=== PATIENT | female | born 1975 | race Caucasian/White ===

== ENCOUNTER 2016-03-17 11:08 | Emergency (ER) | payer SELFPAY ==
[~2016-03-17] VITALS: Ht 167.6 cm; Wt 86.8 kg
[~2016-03-17 11:08] MED LIST: COLY4000S PO; DICY1TAB26 PO; VERA27.5
[2016-03-17 11:14] VITALS: BP 125/78; PULSE 107; RESP 16; TEMP 98.4; O2SAT 98
[2016-03-17] MEDS ORDERED: LIDOCAINE HCL 1% 50 ML VIAL INFIL STA (12:10)
--- NOTE | 2016-03-17 12:46 | PD ---
HPI Chief Complaint: Laceration/Skin Injury Time Seen by Provider: 11:52 Travel History International Travel<30 days: No Contact w/Intl Traveler<30days: No Traveled to known affect area: No History of Present Illness HPI 41-year-old woman cut her right hand on new kitchen knife. She had 2 small cuts on her base of her right index finger. Bleeding is controlled. No other complaints. History Past Medical History Medical History: Denies Significant Hx Tetanus Vaccination: < 5 Years Influenza Vaccination: No LMP: IUD -03/07/16 : 5 Para: 3 Social History Alcohol Use: Yes (Occ.) Tobacco Use: Yes (1 PPD) Allergies-Medications (Allergen,Severity, Reaction): Coded Allergies: Doxycycline (Verified Allergy, Intermediate, NAUSEA/VOMITING, 03/17/16) Reported Meds & Prescriptions Reported Meds & Active Scripts Active No Active Prescriptions or Reported Medications Review of Systems Except as stated in HPI: all other systems reviewed are Neg Physical Exam Narrative GENERAL: 41-year-old woman, no acute distress. SKIN: Warm and dry. CARDIOVASCULAR: Warm and well perfused. RESPIRATORY: Normal rate and effort. MUSCULOSKELETAL: 2 parallel superficial lacerations to the base of the right index finger, one about 12 mm or so, the other one about 5 mm or so. NEUROLOGICAL: Awake and alert. No gross deficits. Data Data Last Documented VS Vital Signs Date Time Temp Pulse Resp B/P Pulse Ox O2 Delivery O2 Flow Rate FiO2 03/17/16 11:14 98.4 107 16 125/78 98 Orders Lidocaine 1% Inj (50 Ml) (Xylocaine 1% I (03/17/16 12:10) [facility] Medical Decision Making Medical Screen Exam Complete: Yes Emergency Medical Condition: Yes Differential Diagnosis Laceration, hand injury, tendon injury, other Narrative Course Medical decision making 41-year-old woman with 2 superficial lacerations to the hand. No evidence of tendon injury. Tetanus up-to-date. They're repaired primarily. Procedures Procedure Narrative LACERATION LOCATION: Right hand LENGTH: 1.5 cm total NUMBER OF STITCHES/ZEE: 3 REPAIR: The area of the laceration was prepped with Betadine and sterilely draped. The laceration was infiltrated with 1% lidocaine. The wound was copiously irrigated and explored without evidence of foreign body, tendon injury or neurovascular injury. The wound was closed using 5-0 Prolene. This was a single layer repair. A sterile dressing was applied. The patient was advised to keep the dressing clean and dry. Patient tolerated the procedure well. Diagnosis Primary Impression: Laceration of right hand Qualified Code: S61.411A - Laceration of right hand, initial encounter Additional Instructions: Keep wound clean and dry. Do not wet for 24 hours. After 24 hours and clean the wound gently with soap and water. Gently clean wound twice daily with soap and water. Do not soak wound. No swimming, hot tubs, or allowing wound to get too wet. Apply antibiotic ointment to wound twice daily. Return to the emergency department for any worsening pain, swelling, redness, significant bleeding, or any other new or worsening symptoms. Return in the ER in 5-7 days for suture removal. Med/Other Pt SpecificInfo: No Change to Meds Scripts No Active Prescriptions or Reported Meds Disposition: 01 DISCHARGE HOME Condition: Stable Raymond Schmidt MD Mar 17, 2016 12:46
== END 2016-03-17 13:08 | disposition home or self-care (01) ==
LOC: PHEFT 11:08
DX: S61.411A Laceration without foreign body of right hand, initial encounter (principal); W26.0XXA Contact with knife, initial encounter
CPT/HCPCS: 12001

== ENCOUNTER 2016-03-24 10:25 | Emergency (ER) | payer SELFPAY ==
[~2016-03-24] VITALS: Ht 167.6 cm; Wt 87.0 kg
[2016-03-24 10:50] VITALS: BP 122/92; PULSE 100; RESP 18; TEMP 99.1; O2SAT 98
--- NOTE | 2016-03-24 11:17 | PD ---
HPI Chief Complaint: Laceration/Skin Injury Time Seen by Provider: 11:13 Travel History International Travel<30 days: No Contact w/Intl Traveler<30days: No Traveled to known affect area: No History of Present Illness HPI Patient is a 41-year-old female presenting for suture removal. One week ago sutures were placed here in the base of the right index finger after laceration with a brand-new knife. They were superficial and small. 3 sutures were used. Patient denies any bleeding, discharge, pain, loss of range of motion, weakness or paresthesia. Denies fevers. PFSH Past Medical History Anxiety: Yes Depression: Yes Cancer: No Cardiovascular Problems: No COPD: Yes Diabetes: No Diminished Hearing: No Endocrine: Yes Gastrointestinal Disorders: Yes (multiple gi surgeries, organs external at ) GERD: Yes Genitourinary: No Hepatitis: Yes (C) Immune Disorder: No Implanted Vascular Access Dvce: No Neurologic: No Psychiatric: Yes Reproductive: No Respiratory: Yes Immunizations Current: Yes ?: Not LMP: 03-07-16 : 5 Para: 3 Miscarriage: 0 : 2 Past Surgical History Abdominal Surgery: Yes (2 as infant ) Body Medical Devices: not sure about abdominal surgeries Section: Yes Gynecologic Surgery: Yes (C-SECTIONS) Other Surgery: Yes (LIVER VALVE REPAIR (CHILD), CHEST TUBE 02/25) Social History Alcohol Use: Yes (Occ.) Tobacco Use: Yes (1 PPD) Substance Use: No Allergies-Medications (Allergen,Severity, Reaction): Coded Allergies: Doxycycline (Verified Allergy, Intermediate, NAUSEA/VOMITING, 03/24/16) Reported Meds & Prescriptions Reported Meds & Active Scripts Active No Active Prescriptions or Reported Medications Review of Systems General / Constitutional: No: Fever, Chills Musculoskeletal: No: Limited ROM Skin: Positive Other (see the history of present illness) Neurologic: No: Weakness, Focal Abnormalities, Paresthesia, Sensory Disturbance Physical Exam Narrative GENERAL: Well-developed and well-nourished adult female in no acute distress. SKIN: Warm and dry. Good turgor without tenting. HEAD: Normocephalic and atraumatic. CARDIOVASCULAR: Regular rate and rhythm without murmurs, rubs, clicks or gallops. Radial pulses 2+ bilaterally. Capillary refill less than 2 seconds cyst of the right index finger. RESPIRATORY: Clear to auscultation bilaterally with symmetrical rise and fall, no distress or use of accessory muscles. MUSCULOSKELETAL: [address] at 2 laceration the base of the right index finger. Healed well, no dehiscence or signs of infection. No erythema, tenderness, drainage, induration or fluctuance. No range of motion in flexion and extension of the right index finger with isolation of IP joints. No gait disturbances. Patient freely moving all four extremities spontaneously. Extremities without clubbing, cyanosis, or edema. No obvious deformities. NEUROLOGIC: CN II-XII grossly intact. Awake and alert. Motor grossly within normal limits. Normal speech. PSYCHIATRIC: Appropriate mood and affect; insight and judgment normal. Data Data Last Documented VS Vital Signs Date Time Temp Pulse Resp B/P Pulse Ox O2 Delivery O2 Flow Rate FiO2 03/24/16 10:50 99.1 100 18 122/92 98 MDM Medical Decision Making Medical Screen Exam Complete: Yes Emergency Medical Condition: Yes Differential Diagnosis Suture removal versus wound dehiscence versus wound infection Narrative Course Patient's 41-year-old female presenting one week after sutures were placed for superficial lacerations to the base of the right index finger. She has no complaints and there is no signs of dehiscence or infection. Sutures were removed without complication.See discharge paperwork for further instructions. The plan was discussed with the patient who acknowledged their understanding and agreement. Reinforced the follow-up with primary care is critically important. Patient instructed on emergent conditions that should prompt return to ED. Diagnosis Primary Impression: Visit for suture removal Patient Instructions: General Instructions Scripts No Active Prescriptions or Reported Meds Disposition: 01 DISCHARGE HOME Condition: Stable Morris Lo III Mar 24, 2016 11:17
== END 2016-03-24 11:27 | disposition home or self-care (01) ==
LOC: PHEFT 10:25
DX: Z48.02 Encounter for removal of sutures (principal)
CPT/HCPCS: 99281

== ENCOUNTER 2016-05-01 21:10 | Emergency (ER) | payer SELFPAY ==
[~2016-05-01] VITALS: Ht 167.6 cm; Wt 90.4 kg
[2016-05-01 21:21] VITALS: BP 139/102; PULSE 103; RESP 20; TEMP 98.8; O2SAT 98
[2016-05-01 21:45] VITALS: BP 120/81; PULSE 99; RESP 18; TEMP 98.8; O2SAT 98
[2016-05-01 21:54] VITALS: RESP 18; O2SAT 98
--- NOTE | 2016-05-01 21:57 | PD ---
HPI Chief Complaint: Numbness/Tingling Time Seen by Provider: 21:34 Travel History International Travel<30 days: No Contact w/Intl Traveler<30days: No Traveled to known affect area: No History of Present Illness HPI The patient is a 41-year-old female that complains of numbness and tingling on her right arm and bilateral legs. She states she was driving for 5 hours today and this occurred afterwards. She states that for an hour she experienced weakness in the right forearm. This resolved completely except for some minimal right calf numbness sensation. Her strength is normal on the right leg , right fingers and wrist.. She denies any nausea, headache, chest pain, shortness of breath or any focal neurologic change now. She does smoke one pack a day. She does not have a doctor or insurance. She states she cannot be , she has an IUD in place. PFSH Past Medical History Anxiety: Yes Depression: Yes Cancer: No Cardiovascular Problems: No COPD: Yes Diabetes: No Diminished Hearing: No Endocrine: Yes Gastrointestinal Disorders: Yes (multiple gi surgeries, organs external at ) GERD: Yes Genitourinary: No Hepatitis: Yes (C) Immune Disorder: No Implanted Vascular Access Dvce: No Neurologic: No Psychiatric: Yes Reproductive: No Respiratory: Yes Immunizations Current: Yes ?: Not LMP: UNKNOWN : 5 Para: 3 Miscarriage: 0 : 2 Past Surgical History Abdominal Surgery: Yes (2 as ) Body Medical Devices: not sure about abdominal surgeries Section: Yes Gynecologic Surgery: Yes (C-SECTIONS) Other Surgery: Yes (LIVER VALVE REPAIR (CHILD), CHEST TUBE 02/25) Social History Alcohol Use: Yes (Occ.) Tobacco Use: Yes (1 PPD) Substance Use: No Allergies-Medications (Allergen,Severity, Reaction): Coded Allergies: Doxycycline (Verified Allergy, Intermediate, NAUSEA/VOMITING, 05/01/16) Reported Meds & Prescriptions Reported Meds & Active Scripts Active No Active Prescriptions or Reported Medications Review of Systems Except as stated in HPI: all other systems reviewed are Neg Physical Exam Narrative GENERAL: The patient is alert, oriented 3 in no apparent distress. Her vital signs show blood pressure 139/102 but repeat blood pressure is 120/81. The rest the vital signs are normal. SKIN: Warm and dry. HEAD: Atraumatic. Normocephalic. EYES: Pupils equal and round. No scleral icterus. No injection or drainage. ENT: No nasal bleeding or discharge. Mucous membranes pink and moist. NECK: Trachea midline. No JVD. No carotid bruits are heard. CARDIOVASCULAR: Regular rate and rhythm. No murmur appreciated. RESPIRATORY: No accessory muscle use. Clear to auscultation. Breath sounds equal bilaterally. GASTROINTESTINAL: Abdomen soft, non-tender, nondistended. Hepatic and splenic margins not palpable. MUSCULOSKELETAL: No obvious deformities. No clubbing. No cyanosis. No edema. NEUROLOGICAL: Awake and alert. No obvious cranial nerve deficits. Motor grossly within normal limits. Normal speech and gait. PSYCHIATRIC: Appropriate mood and affect; insight and judgment normal. Data Data Last Documented VS Vital Signs Date Time Temp Pulse Resp B/P Pulse Ox O2 Delivery O2 Flow Rate FiO2 05/01/16 22:55 97 18 115/87 98 Room Air 05/01/16 21:45 98.8 Orders Electrocardiogram (05/01/16 21:47) Complete Blood Count With Diff (05/01/16 21:47) Comprehensive Metabolic Panel (05/01/16 21:47) Creatine Kinase (Cpk) (05/01/16 21:47) Troponin I (05/01/16 21:47) Urinalysis - C+S If Indicated (05/01/16 21:47) Ct Brain W/O Iv Contrast(Rout) (05/01/16 21:47) Ecg Monitoring (05/01/16 21:47) Iv Access Insert/Monitor (05/01/16 21:47) Oximetry (05/01/16 21:47) Sodium Chloride 0.9% Flush (Ns Flush) (05/01/16 22:00) Ed Urine Pregnancytest Poc (05/01/16 21:47) Labs Laboratory Tests Test 05/01/16 05/01/16 22:05 22:15 White Blood Count 6.3 TH/MM3 Red Blood Count 4.50 MIL/MM3 Hemoglobin 14.1 GM/DL Hematocrit 41.3 % Mean Corpuscular Volume 91.6 FL Mean Corpuscular Hemoglobin 31.4 PG Mean Corpuscular Hemoglobin 34.2 % Concent Red Cell Distribution Width 12.1 % Platelet Count 269 TH/MM3 Mean Platelet Volume 9.7 FL Neutrophils (%) (Auto) 55.3 % Lymphocytes (%) (Auto) 31.1 % Monocytes (%) (Auto) 11.2 % Eosinophils (%) (Auto) 2.1 % Basophils (%) (Auto) 0.3 % Neutrophils # (Auto) 3.5 TH/MM3 Lymphocytes # (Auto) 2.0 TH/MM3 Monocytes # (Auto) 0.7 TH/MM3 Eosinophils # (Auto) 0.1 TH/MM3 Basophils # (Auto) 0.0 TH/MM3 CBC Comment DIFF FINAL Differential Comment Sodium Level 142 MEQ/L Potassium Level 3.6 MEQ/L Chloride Level 105 MEQ/L Carbon Dioxide Level 25.2 MEQ/L Anion Gap 12 MEQ/L Blood Urea Nitrogen 20 MG/DL Creatinine 0.90 MG/DL Estimat Glomerular Filtration 69 ML/MIN Rate Random Glucose 115 MG/DL Calcium Level 8.5 MG/DL Total Bilirubin 0.2 MG/DL Aspartate Amino Transf 87 U/L (AST/SGOT) Alanine Aminotransferase 113 U/L (ALT/SGPT) Alkaline Phosphatase 109 U/L Total Creatine Kinase 78 U/L Troponin I LESS THAN 0.02 NG/ML Total Protein 7.5 GM/DL Albumin 3.4 GM/DL Urine Color STRAW Urine Turbidity CLEAR Urine pH 6.0 Urine Specific [place] 1.015 Urine Protein NEG mg/dL Urine Glucose (UA) NEG mg/dL Urine Ketones NEG mg/dL Urine Occult Blood NEG Urine Nitrite NEG Urine Bilirubin NEG Urine Leukocyte Esterase NEG Urine WBC 0-2 /hpf Urine Squamous Epithelial 0-5 /hpf Cells Microscopic Urinalysis Comment CULT NOT INDICATED MDM Medical Decision Making Medical Screen Exam Complete: Yes Emergency Medical Condition: Yes Medical Record Reviewed: Yes ( ) Interpretation(s) The complete metabolic profile shows a BUN of 20, AST of 87, ALT of 113 but is otherwise normal. The cardiac enzymes are normal. The CBC is normal. The urine is normal and culture is not indicated. The CT brain is normal. The EKG is normal with a normal sinus rhythm of 91. Differential Diagnosis TIA, ischemic CVA, electrolyte disorder, hypo-/hyperglycemia, other metabolic disorder, cardiac syncope/near-syncope, numbness etiology undetermined Narrative Course The patient's neurologic complaints do not follow a normal neurologic patterns. She had numbness on both legs and the right arm. At this time the numbness has completely resolved and she no longer has any right calf numbness. This numbness may be as a result of the trip, driving for 5 hours. The patient states she does this regularly and has never had a problem like this before. She denies any headache, nausea, chest pain or palpitations. All of our emergency department imaging/EKG/blood work is normal. 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 The patient was told about the options of admission, evaluation by neurologist or outpatient follow-up. The patient is to follow-up with a primary care physician. She should take 81 g aspirin daily. She needs to follow-up with a primary care physician anyway. Impression: Transient numbness/right hand weakness etiology undetermined Plan: The patient will take 81 mg of aspirin daily and follow-up with a primary care physician. Diagnosis Primary Impression: Transient neurological symptoms Additional Instructions: As we discussed, follow-up with a primary care physician and take 81 mg aspirin daily. If this happens again, he will likely be admitted to the hospital for a major neurologic workup. Med/Other Pt SpecificInfo: No Meds Exist/No RX given Scripts No Active Prescriptions or Reported Meds Disposition: 01 DISCHARGE HOME Condition: Stable Darrell Forrester MD May 01, 2016 21:57
[2016-05-01] MEDS ORDERED: SODIUM CHLORIDE 0.9% FLUSH 5 ML FLUSH IVF PRN (22:00)
[2016-05-01 22:55] VITALS: BP 115/87; PULSE 97; RESP 18; O2SAT 98
--- NOTE | 2016-05-01 22:57 | RADHPO ---
EXAM DATE/TIME: 05/01/2016 22:44 [facility] COMPARISON: CT BRAIN W/O CONTRAST, August 19, 2011, 10:28. INDICATIONS : Tingling and numbness in right arm and bilateral lower extremities. RADIATION DOSE: 61.3 CTDIvol (mGy) MEDICAL HISTORY : Hepatitis C. SURGICAL HISTORY : None. ENCOUNTER: Initial ACUITY: 1 day PAIN SCALE: 0/10 LOCATION: cranial TECHNIQUE: Multiple contiguous axial images were obtained of the head. Using automated exposure control and adj ustment of the mA and/or kV according to patient size, radiation dose was kept as low as reasonably a chievable to obtain optimal diagnostic quality images. FINDINGS: CEREBRUM: The ventricles are normal for age. No evidence of midline shift, mass lesion, hemorrhage or acute in farction. No extra-axial fluid collections are seen. POSTERIOR FOSSA: The cerebellum and brainstem are intact. The 4th ventricle is midline. The cerebellopontine angle i s unremarkable. EXTRACRANIAL: The visualized portion of the orbits is intact. SKULL: The calvaria is intact. No evidence of skull fracture. CONCLUSION: Normal examination. Martell Colon MD on May 01, 2016 at 22:56 Board Certified Radiologist. This report was verified electronically.
[2016-05-01 23:01] LABS: AUTOMATED NEUTROPHIL # 3.5 TH/MM3 (1.8-7.7); BASOPHIL % 0.3 % (0.0-2.0); EOSINOPHIL # 0.1 TH/MM3 (0-0.4); EOSINOPHIL % 2.1 % (0.0-4.0); HEMATOCRIT 41.3 % (35.0-46.0); HEMO FLAGS DIFF FINAL; LYMPH % 31.1 % (9.0-44.0); MEAN CELL VOLUME 91.6 FL (80.0-100.0); MEAN CORPUSCULAR HEMOGLOBIN 31.4 PG (27.0-34.0); MEAN CORPUSCULAR HGB CONC 34.2 % (32.0-36.0); MONO % 11.2 % (0.0-8.0); NEUT % 55.3 % (16.0-70.0); PLATELET COUNT 269 TH/MM3 (150-450); RED CELL DISTRIBUTION WIDTH 12.1 % (11.6-17.2); WHITE BLOOD COUNT 6.3 TH/MM3 (4.0-11.0)
[2016-05-01 23:05] LABS: BLOOD, URINE NEG (NEG); GLUCOSE,URINE NEG (NEG); KETONE, URINE NEG (NEG); NITRITE,URINE NEG (NEG)
[2016-05-01 23:08] LABS: CHLORIDE 105 MEQ/L (98-107); POTASSIUM 3.6 MEQ/L (3.5-5.1); SODIUM (NA) 142 MEQ/L (136-145)
[2016-05-01 23:12] LABS: ANION GAP 12 MEQ/L (5-15); BICARBONATE 25.2 MEQ/L (21.0-32.0); BLOOD UREA NITROGEN 20 MG/DL (7-18)
[2016-05-01 23:15] LABS: ALT (GPT) 113 U/L (10-53); AST (GOT) 87 U/L (15-37); GLOMERULAR FILTRATION RATE 69 ML/MIN (>89)
[2016-05-01 23:16] LABS: TOTAL BILIRUBIN ADULT 0.2 MG/DL (0.2-1.0)
[2016-05-01 23:18] LABS: ALKALINE PHOSPHATASE 109 U/L (45-117)
[2016-05-01 23:22] LABS: CREATINE KINASE 78 U/L (26-192)
[2016-05-01 23:24] LABS: URINE COLOR STRAW (YELLW/STRAW)
[2016-05-01 23:25] LABS: WBC, URINE 0-2 /hpf (0-5)
[2016-05-01 23:26] LABS: COMMENT (UR) CULT NOT INDICATED; CULTURE IF INDICATED CULT NOT INDICATED; SQUAMOUS EPITHELIAL CELL URINE 0-5 /hpf (0-5)
[2016-05-02 00:02] VITALS: BP 107/74
--- NOTE | 2016-05-02 14:40 | EKG ---
Date Performed: 05/01/2016 Time Performed: 21:55:24 PTAGE: 41 years EKG: Sinus rhythm . Normal ECG PREVIOUS TRACING : 04/05/2013 10.13 Compared to prior tracing no significant change DOCTOR: Paul Nieto Interpretating Date/Time 05/02/2016 14:39:26
== END 2016-05-02 00:04 | disposition home or self-care (01) ==
LOC: PHED 21:10
DX: R29.818 Other symptoms and signs involving the nervous system (principal); R20.0 Anesthesia of skin; R20.2 Paresthesia of skin; F17.200 Nicotine dependence, unspecified, uncomplicated; Z87.09 Personal history of other diseases of the respiratory system; Z87.19 Personal history of other diseases of the digestive system; Z86.59 Personal history of other mental and behavioral disorders
CPT/HCPCS: 70450; 80053; 81001; 82550; 84484; 84703; 85025; 93005

== ENCOUNTER 2016-07-07 00:38 | Inpatient (IN) | payer SELFPAY ==
[2016-07-07] VITALS (11 sets, daily range): BP systolic 101–157; BP diastolic 77–99; PULSE 82–108; RESP 18–20; TEMP 97.5–98.4; O2SAT 92–100
[~2016-07-07] VITALS: Ht 167.6 cm; Wt 90.1 kg
[2016-07-07] MEDS ORDERED: SODIUM CHLOR 0.9% 1000 ML INJ 1,000 ML IV SCH (02:14)
[2016-07-07] MEDS ORDERED: SODIUM CHLORIDE 0.9% FLUSH 10 ML FLUSH IV FLUSH PRN (02:15)
[2016-07-07] MEDS ORDERED: HYDROmorphone HCL PF 1 MG/ML VIAL IVS ONE (02:15)
[2016-07-07] MEDS ORDERED: ONDANSETRON HCL 4 MG/2 ML VIAL IVP ONE (02:15)
--- NOTE | 2016-07-07 02:21 | PD ---
HPI Chief Complaint: GI Complaint Time Seen by Provider: 02:14 Travel History International Travel<30 days: No Contact w/Intl Traveler<30days: No Traveled to known affect area: No History of Present Illness HPI The patient is a 21-year-old female that at 6:45 PM developed right sided abdominal pain. The pain is fairly sharp and a 9/10. She still has her appendix but has had a cholecystectomy. She does have nausea without vomiting. She denies any fever. 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 PFSH Past Medical History Anxiety: Yes Depression: Yes Cancer: No Cardiovascular Problems: No COPD: Yes Diabetes: No Diminished Hearing: No Endocrine: Yes Gastrointestinal Disorders: Yes (multiple gi surgeries, organs external at ) GERD: Yes Genitourinary: No Hepatitis: Yes (C) Immune Disorder: No Implanted Vascular Access Dvce: No Neurologic: No Psychiatric: Yes Reproductive: No Respiratory: Yes Immunizations Current: Yes Tetanus Vaccination: < 5 Years Influenza Vaccination: Yes ?: Not LMP: 5-5-17 : 5 Para: 3 Miscarriage: 0 : 2 Past Surgical History Abdominal Surgery: Yes (2 as ) Body Medical Devices: not sure about abdominal surgeries Section: Yes Gynecologic Surgery: Yes (C-SECTIONS) Other Surgery: Yes (LIVER VALVE REPAIR (CHILD), CHEST TUBE 02/25) Social History Alcohol Use: Yes (Occ.) Tobacco Use: Yes (1 PPD) Substance Use: No Allergies-Medications (Allergen,Severity, Reaction): Coded Allergies: Doxycycline (Verified Allergy, Intermediate, NAUSEA/VOMITING, 07/07/16) Reported Meds & Prescriptions Reported Meds & Active Scripts Active No Active Prescriptions or Reported Medications Review of Systems Except as stated in HPI: all other systems reviewed are Neg Physical Exam Narrative GENERAL: The patient is alert, oriented 3 in moderate apparent distress with her abdominal pain. The vital signs show blood pressure 138/99 with a heart rate of 106 but otherwise normal. SKIN: Focused skin assessment warm/dry. No skin rash is seen HEAD: Atraumatic. Normocephalic. EYES: Pupils equal and round. No scleral icterus. No injection or drainage. ENT: No nasal bleeding or discharge. Mucous membranes pink and moist. NECK: Trachea midline. No JVD. CARDIOVASCULAR: Regular rate and rhythm. No murmur appreciated. RESPIRATORY: No accessory muscle use. Clear to auscultation. Breath sounds equal bilaterally. GASTROINTESTINAL: Abdomen soft, with tenderness present in the right lower and right middle quadrants to direct palpation, nondistended. Hepatic and splenic margins not palpable. No guarding or rebound is present. MUSCULOSKELETAL: No obvious deformities. No clubbing. No cyanosis. No edema. NEUROLOGICAL: Awake and alert. No obvious cranial nerve deficits. Motor grossly within normal limits. Normal speech. PSYCHIATRIC: Appropriate mood and affect; insight and judgment normal. Data Data Last Documented VS Vital Signs Date Time Temp Pulse Resp B/P Pulse Ox O2 Delivery O2 Flow Rate FiO2 07/07/16 03:07 108 18 135/94 98 Room Air 07/07/16 00:45 97.6 Orders Complete Blood Count With Diff (07/07/16 02:14) Comprehensive Metabolic Panel (07/07/16 02:14) Lipase (07/07/16 02:14) Urinalysis - C+S If Indicated (07/07/16 02:14) Ct Abd/Pel W Iv Contrast(Rout) (07/07/16 02:14) Iv Access Insert/Monitor (07/07/16 02:14) Ecg Monitoring (07/07/16 02:14) Oximetry (07/07/16 02:14) Ondansetron Inj (Zofran Inj) (07/07/16 02:15) Sodium Chlor 0.9% 1000 Ml Inj (Ns 1000 M (07/07/16 02:14) Sodium Chloride 0.9% Flush (Ns Flush) (07/07/16 02:15) Hydromorphone Pf Inj (Dilaudid Pf Inj) (07/07/16 02:15) Iohexol 350 Inj (Omnipaque 350 Inj) (07/07/16 02:33) Urine Culture (07/07/16 01:25) Labs Laboratory Tests Test 07/07/16 01:25 White Blood Count 8.6 TH/MM3 Red Blood Count 4.65 MIL/MM3 Hemoglobin 14.4 GM/DL Hematocrit 42.4 % Mean Corpuscular Volume 91.2 FL Mean Corpuscular Hemoglobin 30.9 PG Mean Corpuscular Hemoglobin 33.9 % Concent Red Cell Distribution Width 12.2 % Platelet Count 263 TH/MM3 Mean Platelet Volume 9.9 FL Neutrophils (%) (Auto) 65.9 % Lymphocytes (%) (Auto) 24.3 % Monocytes (%) (Auto) 7.5 % Eosinophils (%) (Auto) 1.3 % Basophils (%) (Auto) 1.0 % Neutrophils # (Auto) 5.8 TH/MM3 Lymphocytes # (Auto) 2.1 TH/MM3 Monocytes # (Auto) 0.6 TH/MM3 Eosinophils # (Auto) 0.1 TH/MM3 Basophils # (Auto) 0.1 TH/MM3 CBC Comment DIFF FINAL Differential Comment Urine Color STRAW Urine Turbidity SLIGHT Urine pH 5.0 Urine Specific [place] 1.010 Urine Protein NEG mg/dL Urine Glucose (UA) NEG mg/dL Urine Ketones NEG mg/dL Urine Occult Blood NEG Urine Nitrite NEG Urine Bilirubin NEG Urine Leukocyte Esterase TRACE Urine RBC 0-2 /hpf Urine WBC 3-5 /hpf Urine Squamous Epithelial > 8 /hpf Cells Urine Bacteria MOD /hpf Microscopic Urinalysis Comment CULTURE INDICATED Sodium Level 141 MEQ/L Potassium Level 3.7 MEQ/L Chloride Level 104 MEQ/L Carbon Dioxide Level 25.4 MEQ/L Anion Gap 12 MEQ/L Blood Urea Nitrogen 16 MG/DL Creatinine 0.81 MG/DL Estimat Glomerular Filtration 78 ML/MIN Rate Random Glucose 139 MG/DL Calcium Level 9.1 MG/DL Total Bilirubin 0.5 MG/DL Aspartate Amino Transf 92 U/L (AST/SGOT) Alanine Aminotransferase 121 U/L (ALT/SGPT) Alkaline Phosphatase 114 U/L Total Protein 7.9 GM/DL Albumin 3.7 GM/DL Lipase 265 U/L [facility] Medical Decision Making Medical Screen Exam Complete: Yes Emergency Medical Condition: Yes Medical Record Reviewed: Yes Interpretation(s) The CT abdomen/pelvis shows a previous omphalocele with unusual rotation of the bowel. There are some distended loops of small bowel throughout the right abdomen without evidence of free air, bowel wall thickening or definite obstruction. The appendix could not be identified as being normal or abnormal. The urine shows trace leukocyte esterase with moderate bacteria and culture is indicated. The complete metabolic profile shows a GFR of 78, glucose 139 with SGOT of 92 and GPT of 121. The lipase is normal. The CBC is normal. Differential Diagnosis Urinary stone, pancreatitis, acute appendicitis, pyelonephritis, electrolyte disorder, anemia, renal insufficiency, bowel obstruction, partial bowel obstruction Narrative Course The patient has intractable pain. She has some dilated loops of small bowel and this is likely the source of her pain. The loops of small bowel are in the same area where she feels her pain. The patient has had multiple abdominal surgeries and is likely have considerable scarring. She may have a partial obstruction. This pain is likely to get worse if the patient goes home and starts taking liquids by mouth. Diagnosis Primary Impression: Intractable abdominal pain Admitting Information Admitting Physician Requests: Observation Scripts No Active Prescriptions or Reported Meds Darrell Forrester MD July 07, 2016 02:21
[2016-07-07 02:32] LABS: AUTOMATED NEUTROPHIL # 5.8 TH/MM3 (1.8-7.7); BASOPHIL # 0.1 TH/MM3 (0-0.2); EOSINOPHIL # 0.1 TH/MM3 (0-0.4); EOSINOPHIL % 1.3 % (0.0-4.0); HEMATOCRIT 42.4 % (35.0-46.0); HEMO FLAGS DIFF FINAL; LYMPH % 24.3 % (9.0-44.0); LYMPHOCYTE # 2.1 TH/MM3 (1.0-4.8); MEAN CELL VOLUME 91.2 FL (80.0-100.0); MEAN CORPUSCULAR HEMOGLOBIN 30.9 PG (27.0-34.0); MEAN CORPUSCULAR HGB CONC 33.9 % (32.0-36.0); MONO % 7.5 % (0.0-8.0); NEUT % 65.9 % (16.0-70.0); PLATELET COUNT 263 TH/MM3 (150-450); RED BLOOD COUNT 4.65 MIL/MM3 (4.00-5.30); RED CELL DISTRIBUTION WIDTH 12.2 % (11.6-17.2); WHITE BLOOD COUNT 8.6 TH/MM3 (4.0-11.0)
[2016-07-07] MEDS ORDERED: IOHEXOL 350 MG/ML 10 ML VIAL (for RAD DIAG) IV ONE (02:33)
[2016-07-07 02:34] LABS: BLOOD, URINE NEG (NEG); GLUCOSE,URINE NEG (NEG); KETONE, URINE NEG (NEG); NITRITE,URINE NEG (NEG)
[2016-07-07 02:39] LABS: CHLORIDE 104 MEQ/L (98-107); POTASSIUM 3.7 MEQ/L (3.5-5.1); SODIUM (NA) 141 MEQ/L (136-145)
[2016-07-07 02:41] LABS: URINE COLOR STRAW (YELLW/STRAW)
[2016-07-07 02:42] LABS: BACTERIA, URINE MOD /hpf; COMMENT (UR) CULTURE INDICATED; CULTURE IF INDICATED CULTURE INDICATED; RBC, URINE 0-2 /hpf (0-3); SQUAMOUS EPITHELIAL CELL URINE > 8 /hpf (0-5)
[2016-07-07 02:43] LABS: ANION GAP 12 MEQ/L (5-15); BICARBONATE 25.4 MEQ/L (21.0-32.0); BLOOD UREA NITROGEN 16 MG/DL (7-18)
[2016-07-07 02:45] LABS: ALT (GPT) 121 U/L (10-53); AST (GOT) 92 U/L (15-37)
[2016-07-07 02:46] LABS: GLOMERULAR FILTRATION RATE 78 ML/MIN (>89)
[2016-07-07 02:47] LABS: TOTAL BILIRUBIN ADULT 0.5 MG/DL (0.2-1.0)
[2016-07-07 02:48] LABS: ALKALINE PHOSPHATASE 114 U/L (45-117)
--- NOTE | 2016-07-07 02:58 | RADHPO ---
EXAM DATE/TIME: 07/07/2016 02:23 [facility] COMPARISON: CT ABDOMEN & PELVIS W CONTRAST, September 19, 2014, 23:26. INDICATIONS : Right sided abdomen pain. IV CONTRAST: 100 cc Omnipaque 350 (iohexol) IV ORAL CONTRAST: No oral contrast ingested. RADIATION DOSE: 19.96 CTDIvol (mGy) MEDICAL HISTORY : Hepatitis C. SURGICAL HISTORY : section. Liver valve repair. Multiple infant bowel reconstruction surgeries. ENCOUNTER: Initial ACUITY: 1 day PAIN SCALE: 8/10 LOCATION: Right abdomen TECHNIQUE: Volumetric scanning of the abdomen and pelvis was performed. Using automated exposure control and ad justment of the mA and/or kV according to patient size, radiation dose was kept as low as reasonably achievable to obtain optimal diagnostic quality images. FINDINGS: LOWER LUNGS: The visualized lower lungs are clear. LIVER: Homogeneous density without lesion. There is no dilation of the biliary tree but there is continued pneumobilia. SPLEEN: Normal size without lesion. PANCREAS: Within normal limits. KIDNEYS: Normal in size and shape. There is no mass, stone or hydronephrosis. ADRENAL GLANDS: Within normal limits. VASCULAR: There is no aortic aneurysm. Prominent bilateral ovarian vein varices left greater than right BOWEL/MESENTERY: The patient has a history of an omphalocele. The mesenteric vessels are reversed but widely patent. S mall mesenteric lymph nodes are unchanged ABDOMINAL WALL: Within normal limits. RETROPERITONEUM: There is no lymphadenopathy. BLADDER: No wall thickening or mass. REPRODUCTIVE: Within normal limits. IUD is in place INGUINAL: There is no lymphadenopathy or hernia. MUSCULOSKELETAL: Within normal limits for patient age. 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 There is some distended loops of small bowel throughout the right abdomen without evidence of free air, bowel wall thickening , or definite level of obstruction. There is some stool type density throughout the small bowel espec ially in the right side of the abdomen similar to the 2015 exam. I don't clearly see a normal or ab normal appendix. Raymond Murphy MD on July 07, 2016 at 2:49 Board Certified Radiologist. This report was verified electronically.
[2016-07-07] MEDS ORDERED: NALOXONE HCL 0.4 MG/ML AMP IV PRN (04:15)
[2016-07-07] MEDS: SODIUM CHLOR 0.9% 1000 ML INJ 1,000 ML IV SCH ×2 (04:28→18:16)
[2016-07-07] MEDS ORDERED: METOCLOPRAMIDE HCL 10 MG/2 ML VIAL IVS ONE (05:00)
[2016-07-07] MEDS ORDERED: MORPHINE SULFATE 4 MG/ML INJ IV PUSH ONE (05:00)
[2016-07-07] MEDS: ONDANSETRON HCL 4 MG/2 ML VIAL IVP PRN ×3 (07:09→18:18)
[2016-07-07] MEDS: SODIUM CHLORIDE 0.9% FLUSH 10 ML FLUSH IV FLUSH SCH ×2 (08:37→21:28)
--- NOTE | 2016-07-07 08:47 | HHI.HP ---
HPI Service [facility] Primary Care Physician No Primary Care Physician Admission Diagnosis intractable abdominal pain Diagnoses: Chief Complaint: Abdominal pain Travel History International Travel<30 Days: No Contact w/Intl Traveler <30 Da: No Traveled to Known Affected Are: No History of Present Illness The patient is a 41-year-old female with past medical history of gastroschisis who is presenting to the hospital with abdominal pain. She said she had pasta for dinner and then an hour later she started to develop right lower quadrant pain. She said the pain was a squeezing sensation and she rated it as an 8 out of 10 in severity. She then said the pain started to radiate to the middle of her stomach. She has had nausea associated with the abdominal pain but has not been vomiting. She denies any fevers. She said she last had a bowel movement the day before yesterday. She is still passing gas. She has a decreased appetite. She says the pain medications are taking the edge off. She says she has had abdominal surgery in the past because of her condition of gastroschisis. Review of Systems Except as stated in HPI: all other systems reviewed are Neg Past Family Social History Past Medical History Gastroschisis status post surgical repair HCV Early COPD Right pneumothorax Allergies: Coded Allergies: Doxycycline (Verified Allergy, Intermediate, NAUSEA/VOMITING, 07/07/16) Active Ordered Medications Current Medications Medications (Trade) Dose Ordered Sig/Laurie Route Start Time Stop Time Status Last Admin (NS 1000 ml Inj) 1,000 ml @ 100 mls/hr Q10H IV 07/07/16 04:11 07/07/16 04:28 (NS Flush) 2 ml UNSCH PRN IV FLUSH 07/07/16 04:15 (NS Flush) 2 ml BID IV FLUSH 07/07/16 09:00 (Zofran Inj) 4 mg Q6H PRN IVP 07/07/16 04:15 07/07/16 07:09 (Narcan Inj) 0.4 mg UNSCH PRN IV 07/07/16 04:15 Family History COPD Social History The patient smokes 1-1/2 packs daily. She has social alcohol use. She denies any drug use. Physical Exam Vital Signs Vital Signs Date Time Temp Pulse Resp B/P Pulse Ox O2 Delivery O2 Flow Rate FiO2 07/07/16 06:59 97.9 98 18 127/97 98 Room Air 07/07/16 05:21 97 18 124/91 96 Room Air 07/07/16 05:21 18 07/07/16 05:20 18 07/07/16 03:07 108 18 135/94 98 Room Air 07/07/16 03:00 103 18 157/84 100 Room Air 07/07/16 03:00 18 07/07/16 02:59 18 07/07/16 02:28 18 99 Room Air 07/07/16 02:04 99 18 139/89 99 Room Air 07/07/16 01:01 18 07/07/16 00:45 97.6 106 20 138/99 100 Physical Exam GENERAL: This is a well-nourished, well-developed patient, in no apparent distress. SKIN: No rashes, ecchymoses or lesions. Cool and dry. HEAD: Atraumatic. Normocephalic. No temporal or scalp tenderness. EYES: Pupils equal round and reactive. Extraocular motions intact. No scleral icterus. No injection or drainage. ENT: Nose without bleeding, purulent drainage or septal hematoma. Throat without erythema, tonsillar hypertrophy or exudate. Uvula midline. Airway patent. NECK: Trachea midline. No JVD or lymphadenopathy. Supple, nontender, no meningeal signs. CARDIOVASCULAR: Regular rate and rhythm without murmurs, gallops, or rubs. RESPIRATORY: Clear to auscultation. Breath sounds equal bilaterally. No wheezes , rales, or rhonchi. GASTROINTESTINAL: Positive bowel sounds. Surgical scars noted. Abdomen soft, slightly tender in the lower quadrants, nondistended. No hepato-splenomegaly, or palpable masses. No guarding. MUSCULOSKELETAL: Extremities without clubbing, cyanosis, or edema. No joint tenderness, effusion, or edema noted. NEUROLOGICAL: Awake and alert. Cranial nerves II through XII intact. Motor and sensory grossly within normal limits. Five out of 5 muscle strength in all muscle groups. Normal speech. PSYCH: Mood and affect appropriate. Laboratory Laboratory Tests Test 07/07/16 01:25 White Blood Count 8.6 Red Blood Count 4.65 Hemoglobin 14.4 Hematocrit 42.4 Mean Corpuscular Volume 91.2 Mean Corpuscular Hemoglobin 30.9 Mean Corpuscular Hemoglobin 33.9 Concent Red Cell Distribution Width 12.2 Platelet Count 263 Mean Platelet Volume 9.9 Neutrophils (%) (Auto) 65.9 Lymphocytes (%) (Auto) 24.3 Monocytes (%) (Auto) 7.5 Eosinophils (%) (Auto) 1.3 Basophils (%) (Auto) 1.0 Neutrophils # (Auto) 5.8 Lymphocytes # (Auto) 2.1 Monocytes # (Auto) 0.6 Eosinophils # (Auto) 0.1 Basophils # (Auto) 0.1 CBC Comment DIFF FINAL Differential Comment Urine Color STRAW Urine Turbidity SLIGHT Urine pH 5.0 Urine Specific [place] 1.010 Urine Protein NEG Urine Glucose (UA) NEG Urine Ketones NEG Urine Occult Blood NEG Urine Nitrite NEG Urine Bilirubin NEG Urine Leukocyte Esterase TRACE Urine RBC 0-2 Urine WBC 3-5 Urine Squamous Epithelial > 8 Cells Urine Bacteria MOD Microscopic Urinalysis Comment CULTURE INDICATED Sodium Level 141 Potassium Level 3.7 Chloride Level 104 Carbon Dioxide Level 25.4 Anion Gap 12 Blood Urea Nitrogen 16 Creatinine 0.81 Estimat Glomerular Filtration 78 Rate Random Glucose 139 Calcium Level 9.1 Total Bilirubin 0.5 Aspartate Amino Transf 92 (AST/SGOT) Alanine Aminotransferase 121 (ALT/SGPT) Alkaline Phosphatase 114 Total Protein 7.9 Albumin 3.7 Lipase 265 Date/Time Procedure Status Source Growth 07/07/16 01:25 Urine Culture Received Urine Clean Catch Pending Result Diagram: 07/07/165 07/07/165 Imaging Last Impressions Abdomen/Pelvis CT 07/07/164 Signed Impressions: Service Date/Time: June 02:23 - CONCLUSION: 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 There is some distended loops of small bowel throughout the right abdomen without evidence of free air, bowel wall thickening, or definite level of obstruction. There is some stool type density throughout the small bowel especially in the right side of the abdomen similar to the 2015 exam. I don't clearly see a normal or abnormal appendix. Raymond Murphy MD Assessment and Plan Assessment and Plan Partial bowel obstruction The patient had abdominal pain and nausea. 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 - keep the pt NPO with IVFs. - pain control with a bowel regimen. - Antiemetics as needed. - PPI. Elevated LFTs Appears to be chronic. Pneumobilia noted on CT of the abdomen. - Continue to trend. - consider liver US. Hyperglycemia May be a stress reaction. - Check a hemoglobin A1c. Nicotine dependence The patient smokes up to a pack and a half daily. She says she was told she has early COPD. - Cessation instruction. - Nicotine patch. PPx: Lovenox. Discussed Condition With Pt. Jey Vance DO July 07, 2016 08:47
[2016-07-07] MEDS: REMOVE OLD PATCH T-DERMAL SCH (09:00)
[2016-07-07] MEDS: PANTOPRAZOLE SODIUM 40 MG VIAL IV PUSH SCH (09:09)
[2016-07-07] MEDS: ENOXAPARIN SODIUM 40 MG/0.4 ML SYRINGE SQ SCH (09:09)
[2016-07-07] MEDS: DOCUSATE SODIUM 100 MG CAP PO SCH ×2 (09:09→21:28)
[2016-07-07] MEDS: SENNOSIDES 8.6 MG TAB PO SCH (09:09)
[2016-07-07] MEDS: NICOTINE 21 MG/24 HR PATCH T-DERMAL SCH (09:10)
[2016-07-07 14:45] LABS: HEMOGLOBIN A1b 1.6 %; HEMOGLOBIN Ao 85.4 %; HEMOGLOBIN LA1C 2.1 %; HEMOGLOBIN P3 3.8 %
[2016-07-08] VITALS: BP 106/76; PULSE 82; PULSE 85; RESP 16; RESP 18; TEMP 97.5; TEMP 98.1; O2SAT 98
[2016-07-08] MEDS: SODIUM CHLOR 0.9% 1000 ML INJ 1,000 ML IV SCH ×2 (00:11→16:38)
[2016-07-08] MEDS ORDERED: MELATONIN 5 MG TAB PO ONE (00:30)
[2016-07-08] MEDS: HYDROmorphone HCL PF 1 MG/ML VIAL IV PUSH PRN ×4 (00:38→21:42)
[2016-07-08] MEDS: ONDANSETRON HCL 4 MG/2 ML VIAL IVP PRN ×3 (04:43→16:13)
[2016-07-08 06:50] LABS: POTASSIUM 3.7 MEQ/L (3.5-5.1)
[2016-07-08 06:59] LABS: AUTOMATED NEUTROPHIL # 2.1 TH/MM3 (1.8-7.7); BASOPHIL % 0.4 % (0.0-2.0); EOSINOPHIL # 0.1 TH/MM3 (0-0.4); EOSINOPHIL % 2.8 % (0.0-4.0); HEMATOCRIT 37.2 % (35.0-46.0); HEMO FLAGS DIFF FINAL; LYMPH % 32.8 % (9.0-44.0); LYMPHOCYTE # 1.3 TH/MM3 (1.0-4.8); MEAN CELL VOLUME 92.6 FL (80.0-100.0); MEAN CORPUSCULAR HGB CONC 33.5 % (32.0-36.0); MONO % 11.4 % (0.0-8.0); NEUT % 52.6 % (16.0-70.0); PLATELET COUNT 173 TH/MM3 (150-450); RED BLOOD COUNT 4.02 MIL/MM3 (4.00-5.30); RED CELL DISTRIBUTION WIDTH 12.5 % (11.6-17.2)
[2016-07-08 07:05] LABS: BICARBONATE 25.4 MEQ/L (21.0-32.0); INDIRECT BILIRUBIN 0.5 MG/DL (0.0-0.8); TOTAL BILIRUBIN ADULT 0.7 MG/DL (0.2-1.0)
[2016-07-08 08:00] VITALS: BP 92/77; PULSE 80; RESP 16; TEMP 96.3; O2SAT 97
[2016-07-08] MEDS: DOCUSATE SODIUM 100 MG CAP PO SCH ×2 (08:41→21:41)
[2016-07-08] MEDS: SENNOSIDES 8.6 MG TAB PO SCH (08:41)
[2016-07-08] MEDS: NICOTINE 21 MG/24 HR PATCH T-DERMAL SCH (08:41)
[2016-07-08] MEDS: REMOVE OLD PATCH T-DERMAL SCH (08:43)
[2016-07-08] MEDS: PANTOPRAZOLE SODIUM 40 MG VIAL IV PUSH SCH (08:43)
[2016-07-08] MEDS: ENOXAPARIN SODIUM 40 MG/0.4 ML SYRINGE SQ SCH (08:43)
[2016-07-08] MEDS: SODIUM CHLORIDE 0.9% FLUSH 10 ML FLUSH IV FLUSH SCH ×2 (08:43→21:41)
--- NOTE | 2016-07-08 10:19 | HHI.PR ---
Subjective Remarks The patient said that she had 3 bowel movements since yesterday. She said that she was straining during her bowel movements. She also describes pain on urination. She says that yesterday she tolerated the clear liquid diet but she had some increased abdominal pain following her breakfast this morning. She wants to know if she needs her IV fluids. Discussed with nursing. Objective Vitals Vital Signs Date Time Temp Pulse Resp B/P Pulse Ox O2 Delivery O2 Flow Rate FiO2 07/08/16 08:00 96.3 80 16 92/77 97 07/08/16 00:00 98.1 85 18 106/76 98 07/08/16 00:00 97.5 82 16 106/76 98 07/07/16 20:00 98.4 90 18 120/87 100 07/07/16 20:00 98.4 90 20 120/87 92 07/07/16 16:00 97.7 82 18 101/77 99 07/07/16 12:00 97.5 88 20 127/84 97 I/O 07/07/16 07/07/16 07/07/16 07/08/16 07/08/16 07/08/16 07:00 15:00 23:00 07:00 15:00 23:00 Intake Total 1000 ml 0 ml 2500 ml Output Total 9 ml Balance 1000 ml 0 ml 2491 ml Intake Oral 0 ml 1800 ml IV Total 1000 ml 700 ml Output Urine Total 5 ml Stool Total 4 ml # Voids 4 Result Diagram: 07/08/16 0605 07/08/16 0605 Imaging Last Impressions Abdomen/Pelvis CT 07/07/16 0214 Signed Impressions: Service Date/Time: June 02:23 - CONCLUSION: 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 There is some distended loops of small bowel throughout the right abdomen without evidence of free air, bowel wall thickening, or definite level of obstruction. There is some stool type density throughout the small bowel especially in the right side of the abdomen similar to the 2014 exam. I don't clearly see a normal or abnormal appendix. Raymond Murphy MD Objective Remarks GENERAL: This is a well-nourished, well-developed patient, in no apparent distress. SKIN: No rashes, ecchymoses or lesions. Cool and dry. HEAD: Atraumatic. Normocephalic. No temporal or scalp tenderness. EYES: Pupils equal round and reactive. Extraocular motions intact. No scleral icterus. No injection or drainage. ENT: Nose without bleeding, purulent drainage or septal hematoma. Throat without erythema, tonsillar hypertrophy or exudate. Uvula midline. Airway patent. NECK: Trachea midline. No JVD or lymphadenopathy. Supple, nontender, no meningeal signs. CARDIOVASCULAR: Regular rate and rhythm without murmurs, gallops, or rubs. RESPIRATORY: Clear to auscultation. Breath sounds equal bilaterally. No wheezes , rales, or rhonchi. GASTROINTESTINAL: Decreased bowel sounds. Surgical scars noted. Abdomen soft, slightly tender on the right, nondistended. No hepato-splenomegaly, or palpable masses. No guarding. MUSCULOSKELETAL: Extremities without clubbing, cyanosis, or edema. No joint tenderness, effusion, or edema noted. NEUROLOGICAL: Awake and alert. Cranial nerves II through XII intact. Motor and sensory grossly within normal limits. Five out of 5 muscle strength in all muscle groups. Normal speech. PSYCH: Mood and affect appropriate. Medications and IVs Current Medications Medications (Trade) Dose Ordered Sig/Laurie Route Start Time Stop Time Status Last Admin (NS Flush) 2 ml UNSCH PRN IV FLUSH 07/07/16 04:15 (NS Flush) 2 ml BID IV FLUSH 07/07/16 09:00 07/08/16 08:43 (Zofran Inj) 4 mg Q6H PRN IVP 07/07/16 04:15 07/08/16 04:43 (Narcan Inj) 0.4 mg UNSCH PRN IV 07/07/16 04:15 (Roxicodone) 5 mg Q4H PRN PO 07/07/16 08:45 (Roxicodone) 10 mg Q4H PRN PO 07/07/16 08:45 07/08/16 08:59 (Dilaudid Pf Inj) 0.5 mg Q4H PRN IV PUSH 07/07/16 08:45 07/08/16 00:38 (Protonix Inj) 40 mg Q24H IV PUSH 07/07/16 09:00 07/08/16 08:43 (Habitrol 21 Mg Patch.24 Hr) 1 patch DAILY T-DERMAL 07/07/16 09:00 07/08/16 08:41 Miscellaneous Information 1 DAILY T-DERMAL 07/07/16 09:00 07/08/16 08:43 (Colace) 100 mg BID PO 07/07/16 09:00 07/08/16 08:41 (Senokot) 17.2 mg DAILY PO 07/07/16 09:00 07/08/16 08:41 (Lovenox Inj) 40 mg Q24H SQ 07/07/16 09:00 07/08/16 08:43 A/P Assessment and Plan Partial bowel obstruction The patient had abdominal pain and nausea. 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 She was advanced to a clear liquid diet. She has been having bowel movements. - Continue clear liquid diet. - pain control with a bowel regimen. Add lactulose and MiraLAX. - Antiemetics as needed. - PPI. Elevated LFTs Appears to be chronic. Pneumobilia noted on CT of the abdomen. Improving. - Continue to trend. Hyperglycemia Likely a stress reaction. - Hemoglobin A1c 5.9%. Nicotine dependence The patient smokes up to a pack and a half daily. She says she was told she has early COPD. - Cessation instruction. - Nicotine patch. UTI The patient is having incomplete urination and dysuria. UA indicative of possible infection. - Start IV ceftriaxone. - Follow urine culture. PPx: Lovenox. Discharge Planning Awaiting clinical improvement. Jey Vance DO July 08, 2016 10:19
[2016-07-08] MEDS: LACTULOSE SYRUP 20 GM/30 ML CUP PO SCH (10:48)
[2016-07-08] MEDS: cefTRIAXone INJ 1,000 MG in SODIUM CHLORIDE 0.9% INJ 100 ML IV SCH (10:48)
[2016-07-08] MEDS: POLYETHYLENE GLYCOL 17 GM PKG PO SCH (10:48)
[2016-07-08] MEDS: SODIUM CHLORIDE 0.9% FLUSH 10 ML FLUSH IV FLUSH PRN ×2 (11:02→16:39)
[2016-07-08 12:00] VITALS: BP 110/82; PULSE 81; RESP 16; TEMP 96.3; O2SAT 95
[2016-07-08 16:00] VITALS: BP 119/82; PULSE 94; RESP 18; TEMP 95.4; O2SAT 97
--- NOTE | 2016-07-08 17:14 | RADHPO ---
EXAM DATE/TIME: 07/08/2016 16:22 [facility] COMPARISON: No previous studies available for comparison. INDICATIONS : Right sided abdomen pain. MEDICAL HISTORY : Hepatitis C. SURGICAL HISTORY : section. Liver valve repair. Multiple bowel reconstruction surgeries ENCOUNTER: Initial ACUITY: 2 days PAIN SCORE: 8/10 LOCATION: Right abdomen FINDINGS: Supine view of the abdomen was performed. There is a mild ileus. Intrauterine device present. No evid ence for obstruction or free air. No acute bony abnormality. CONCLUSION: 1. Mild ileus. Intrauterine device present. Joseph Camejo MD on July 08, 2016 at 17:10 Board Certified Radiologist. This report was verified electronically.
[2016-07-08 20:20] VITALS: BP 118/86; PULSE 98; RESP 18; TEMP 96.1; O2SAT 99
[2016-07-09 00:21] VITALS: BP 127/84; PULSE 97; RESP 16; TEMP 97.9; O2SAT 96
[2016-07-09] MEDS: ONDANSETRON HCL 4 MG/2 ML VIAL IVP PRN ×3 (00:33→17:53)
[2016-07-09] MEDS: ZOLPIDEM TARTRATE 5 MG TAB PO PRN ×2 (00:35→22:16)
[2016-07-09] MEDS: HYDROmorphone HCL PF 1 MG/ML VIAL IV PUSH PRN ×3 (02:49→17:54)
[2016-07-09] MEDS: SODIUM CHLOR 0.9% 1000 ML INJ 1,000 ML IV SCH (06:08)
[2016-07-09 07:32] LABS: CHLORIDE 110 MEQ/L (98-107); POTASSIUM 3.7 MEQ/L (3.5-5.1); SODIUM (NA) 142 MEQ/L (136-145)
[2016-07-09 07:41] LABS: ANION GAP 6 MEQ/L (5-15); BLOOD UREA NITROGEN 3 MG/DL (7-18)
[2016-07-09 07:43] LABS: AST (GOT) 72 U/L (15-37); GLOMERULAR FILTRATION RATE 119 ML/MIN (>89)
[2016-07-09 07:45] LABS: ALT (GPT) 87 U/L (10-53); TOTAL BILIRUBIN ADULT 0.4 MG/DL (0.2-1.0)
[2016-07-09 07:46] LABS: ALKALINE PHOSPHATASE 93 U/L (45-117)
[2016-07-09 08:00] VITALS: BP 129/78; PULSE 91; RESP 18; TEMP 97.8; O2SAT 99
[2016-07-09] MEDS: SENNOSIDES 8.6 MG TAB PO SCH (08:17)
[2016-07-09] MEDS: PANTOPRAZOLE SOD 40 MG DELAYED RELEASE TAB PO SCH (08:17)
[2016-07-09] MEDS: DOCUSATE SODIUM 100 MG CAP PO SCH ×2 (08:17→22:16)
[2016-07-09] MEDS: LACTULOSE SYRUP 20 GM/30 ML CUP PO SCH (08:17)
[2016-07-09] MEDS: ENOXAPARIN SODIUM 40 MG/0.4 ML SYRINGE SQ SCH (08:17)
[2016-07-09] MEDS: POLYETHYLENE GLYCOL 17 GM PKG PO SCH (08:18)
[2016-07-09] MEDS: SODIUM CHLORIDE 0.9% FLUSH 10 ML FLUSH IV FLUSH SCH ×2 (08:18→21:00)
[2016-07-09] MEDS: NICOTINE 21 MG/24 HR PATCH T-DERMAL SCH (08:18)
--- NOTE | 2016-07-09 08:40 | HHI.PR ---
Subjective Remarks The pt continued to complain of abdominal pain. She said that she was having a burning sensation that will radiate to her back eventually. She said the pain medications weren't enough. She has been passing gas but has not had any further bowel movements. Nursing at the bedside. Objective Vitals Vital Signs Date Time Temp Pulse Resp B/P Pulse Ox O2 Delivery O2 Flow Rate FiO2 07/09/16 00:21 97.9 97 16 127/84 96 07/08/16 22:20 20 07/08/16 21:33 18 07/08/16 20:20 96.1 98 18 118/86 99 07/08/16 16:00 95.4 94 18 119/82 97 07/08/16 12:00 96.3 81 16 110/82 95 07/08/16 09:59 18 I/O 07/08/16 07/08/16 07/08/16 07/09/16 07/09/16 07/09/16 07:00 15:00 23:00 07:00 15:00 23:00 Intake Total 2500 ml 520 ml 550 ml 900 ml Output Total 9 ml 400 ml Balance 2491 ml 120 ml 550 ml 900 ml Intake Oral 1800 ml 520 ml 250 ml IV Total 700 ml 300 ml 900 ml Output Urine Total 5 ml Stool Total 4 ml Emesis 400 ml # Voids 2 1 3 Result Diagram: 07/08/16 0605 07/09/16 0651 Imaging Last Impressions Abdomen X-Ray 07/08/16 0000 Signed Impressions: Service Date/Time: Friday, July 08, 2016 16:22 - CONCLUSION: 1. Mild ileus. Intrauterine device present. 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 There is some distended loops of small bowel throughout the right abdomen without evidence of free air, bowel wall thickening, or definite level of obstruction. There is some stool type density throughout the small bowel especially in the right side of the abdomen similar to the 2015 exam. I don't clearly see a normal or abnormal appendix. Raymond Murphy MD Objective Remarks GENERAL: This is a well-nourished, well-developed patient, in no apparent distress. SKIN: No rashes, ecchymoses or lesions. Cool and dry. HEAD: Atraumatic. Normocephalic. No temporal or scalp tenderness. EYES: Pupils equal round and reactive. Extraocular motions intact. No scleral icterus. No injection or drainage. ENT: Nose without bleeding, purulent drainage or septal hematoma. Throat without erythema, tonsillar hypertrophy or exudate. Uvula midline. Airway patent. NECK: Trachea midline. No JVD or lymphadenopathy. Supple, nontender, no meningeal signs. CARDIOVASCULAR: Regular rate and rhythm without murmurs, gallops, or rubs. RESPIRATORY: Clear to auscultation. Breath sounds equal bilaterally. No wheezes , rales, or rhonchi. GASTROINTESTINAL: + bowel sounds. Surgical scars noted. Abdomen soft, slightly tender on the right, nondistended. No hepato-splenomegaly, or palpable masses. No guarding. MUSCULOSKELETAL: Extremities without clubbing, cyanosis, or edema. No joint tenderness, effusion, or edema noted. NEUROLOGICAL: Awake and alert. Cranial nerves II through XII intact. Motor and sensory grossly within normal limits. Five out of 5 muscle strength in all muscle groups. Normal speech. PSYCH: Mood and affect appropriate. Medications and IVs Current Medications Medications (Trade) Dose Ordered Sig/Laurie Route Start Time Stop Time Status Last Admin (NS Flush) 2 ml UNSCH PRN IV FLUSH 07/07/16 04:15 07/08/16 16:39 (NS Flush) 2 ml BID IV FLUSH 07/07/16 09:00 07/08/16 21:41 (Zofran Inj) 4 mg Q6H PRN IVP 07/07/16 04:15 07/09/16 08:25 (Narcan Inj) 0.4 mg UNSCH PRN IV 07/07/16 04:15 (Roxicodone) 5 mg Q4H PRN PO 07/07/16 08:45 07/08/16 19:59 (Roxicodone) 10 mg Q4H PRN PO 07/07/16 08:45 07/09/16 08:16 (Dilaudid Pf Inj) 0.5 mg Q4H PRN IV PUSH 07/07/16 08:45 07/09/16 02:49 (Habitrol 21 Mg Patch.24 Hr) 1 patch DAILY T-DERMAL 5/25/17 09:00 07/09/16 08:18 Miscellaneous Information 1 DAILY T-DERMAL 07/07/16 09:00 07/08/16 08:43 (Colace) 100 mg BID PO 07/07/16 09:00 07/09/16 08:17 (Senokot) 17.2 mg DAILY PO 07/07/16 09:00 07/09/16 08:17 Enoxaparin Sodium 40 mg 40 mg Q24H SQ 07/07/16 09:00 07/09/16 08:17 (Rocephin Inj/NS Inj) 100 ml @ 200 mls/hr Q24H IV 07/08/16 11:00 07/08/16 10:48 (Miralax) 17 gm DAILY PO 07/08/16 10:15 07/09/16 08:18 (Lactulose Liq) 30 ml DAILY PO 07/08/16 10:15 07/09/16 08:17 (Protonix) 40 mg DAILY PO 07/09/16 09:00 07/09/16 08:17 Zolpidem Tartrate 5 mg 5 mg HS PRN PO 07/08/16 15:15 07/09/16 00:35 (NS 1000 ml Inj) 1,000 ml @ 100 mls/hr Q10H IV 07/08/16 16:30 07/09/16 06:08 A/P Assessment and Plan Partial bowel obstruction The patient had abdominal pain and nausea. 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 She was advanced to a clear liquid diet. She has been having bowel movements. Pt with N/V so has been made NPO again. KUB with mild ileus. - Continue NPO with IVFs. - pain control with a bowel regimen. Add lactulose and MiraLAX. Dulcolax supp x 1. - Antiemetics as needed. - PPI. - repeat KUB. - GI consult if no improvement. Elevated LFTs Appears to be chronic. Pneumobilia noted on CT of the abdomen. Stable. - Continue to trend. Hyperglycemia Likely a stress reaction. - Hemoglobin A1c 5.9%. Nicotine dependence The patient smokes up to a pack and a half daily. She says she was told she has early COPD. - Cessation instruction. - Nicotine patch. UTI The patient is having incomplete urination and dysuria. UA indicative of possible infection. - Start IV ceftriaxone. - Follow urine culture. PPx: Lovenox. Discharge Planning Awaiting clinical improvement. Jey Vance DO July 09, 2016 08:40
[2016-07-09] MEDS ORDERED: BISACODYL 10 MG SUPP RECTAL ONE (09:00)
[2016-07-09] MEDS: REMOVE OLD PATCH T-DERMAL SCH (09:00)
--- NOTE | 2016-07-09 09:54 | RADHPO ---
EXAM DATE/TIME: 07/09/2016 09:29 [facility] COMPARISON: CT ABDOMEN & PELVIS W CONTRAST, July 07, 2016, 2:23. ABDOMEN KUB ONLY, July 08, 2016, 16:22. INDICATIONS : Ileus, abdomen pain MEDICAL HISTORY : Hepatitis C. SURGICAL HISTORY : section. multiple infant bowel surgery ENCOUNTER: Subsequent ACUITY: 3 days PAIN SCORE: 6/10 LOCATION: Bilateral abdomen FINDINGS: 2 supine frontal views of the abdomen demonstrate mild gaseous distention of small bowel and colon pr imarily on the right side of the abdomen. No transition point is present. No organomegaly or concerni ng calcifications are visualized. IUD is present within the pelvis. Bones demonstrate no acute findin g. CONCLUSION: Mild gaseous distention of the small bowel and colon similar to the prior study but no findings to kirk ggest obstruction. Morris Gomez MD on July 09, 2016 at 9:50 Board Certified Radiologist. This report was verified electronically.
[2016-07-09] MEDS: DEXT 5%-NACL 0.45% 1000 ML INJ 1,000 ML IV SCH ×2 (10:00→22:16)
[2016-07-09] MEDS: cefTRIAXone INJ 1,000 MG in SODIUM CHLORIDE 0.9% INJ 100 ML IV SCH (11:18)
[2016-07-09] MEDS ORDERED: MAGNESIUM CITRATE SOLN 300 ML BTL PO ONE (11:20)
[2016-07-09 12:00] VITALS: BP 118/88; PULSE 106; RESP 20; TEMP 97.5; O2SAT 98
[2016-07-09 16:00] VITALS: BP 124/85; PULSE 91; RESP 18; TEMP 98; O2SAT 98
[2016-07-09 20:20] VITALS: BP 105/84; PULSE 93; RESP 16; TEMP 98; O2SAT 99
[2016-07-10 00:20] VITALS: BP 111/72; PULSE 94; RESP 16; TEMP 98; O2SAT 97
[2016-07-10] MEDS: DEXT 5%-NACL 0.45% 1000 ML INJ 1,000 ML IV SCH (06:00)
[2016-07-10 07:37] LABS: CHLORIDE 111 MEQ/L (98-107); POTASSIUM 3.4 MEQ/L (3.5-5.1); SODIUM (NA) 143 MEQ/L (136-145)
[2016-07-10 07:40] LABS: ANION GAP 6 MEQ/L (5-15); BICARBONATE 25.6 MEQ/L (21.0-32.0)
[2016-07-10 07:41] LABS: BLOOD UREA NITROGEN 1 MG/DL (7-18)
[2016-07-10 07:44] LABS: ALT (GPT) 77 U/L (10-53); AST (GOT) 59 U/L (15-37); GLOMERULAR FILTRATION RATE 112 ML/MIN (>89)
[2016-07-10 07:45] LABS: TOTAL BILIRUBIN ADULT 0.3 MG/DL (0.2-1.0)
[2016-07-10 07:46] LABS: ALKALINE PHOSPHATASE 86 U/L (45-117)
[2016-07-10] MEDS: SODIUM CHLORIDE 0.9% FLUSH 10 ML FLUSH IV FLUSH SCH ×2 (08:53→22:15)
[2016-07-10] MEDS: ENOXAPARIN SODIUM 40 MG/0.4 ML SYRINGE SQ SCH (08:54)
[2016-07-10] MEDS: PANTOPRAZOLE SOD 40 MG DELAYED RELEASE TAB PO SCH (08:54)
[2016-07-10] MEDS: SENNOSIDES 8.6 MG TAB PO SCH (08:54)
[2016-07-10] MEDS: DOCUSATE SODIUM 100 MG CAP PO SCH ×2 (08:54→21:00)
[2016-07-10] MEDS: LACTULOSE SYRUP 20 GM/30 ML CUP PO SCH (08:54)
[2016-07-10] MEDS: POLYETHYLENE GLYCOL 17 GM PKG PO SCH (08:54)
[2016-07-10] MEDS: NICOTINE 21 MG/24 HR PATCH T-DERMAL SCH (08:54)
[2016-07-10] MEDS: REMOVE OLD PATCH T-DERMAL SCH (09:00)
--- NOTE | 2016-07-10 09:59 | HHI.PR ---
Subjective Remarks The patient has been having loose bowel movements. She says her abdominal pain is much improved. She has been tolerating a clear liquid diet. She does complain of urinary discomfort. Discussed with nursing. Objective Vitals Vital Signs Date Time Temp Pulse Resp B/P Pulse Ox O2 Delivery O2 Flow Rate FiO2 07/10/16 00:20 98.0 94 16 111/72 97 07/09/16 20:20 98.0 93 16 105/84 99 07/09/16 16:00 98.0 91 18 124/85 98 07/09/16 14:21 20 07/09/16 12:00 97.5 106 20 118/88 98 07/09/16 11:31 20 I/O 07/09/16 07/09/16 07/09/16 07/10/16 07/10/16 07/10/16 07:00 15:00 23:00 07:00 15:00 23:00 Intake Total 900 ml 750 ml 480 ml Balance 900 ml 750 ml 480 ml Intake Oral 750 ml 480 ml IV Total 900 ml # Voids 3 4 2 2 # Bowel Movements 2 Result Diagram: 07/08/16 0605 07/10/16 0712 Imaging Last Impressions Abdomen X-Ray 07/09/16 0000 Signed Impressions: Service Date/Time: Saturday, July 09, 2016 09:29 - CONCLUSION: Mild gaseous distention of the small bowel and colon similar to the prior study but no findings to suggest obstruction. 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 There is some distended loops of small bowel throughout the right abdomen without evidence of free air, bowel wall thickening, or definite level of obstruction. There is some stool type density throughout the small bowel especially in the right side of the abdomen similar to the 2015 exam. I don't clearly see a normal or abnormal appendix. Raymond Murphy MD Objective Remarks GENERAL: This is a well-nourished, well-developed patient, in no apparent distress. SKIN: No rashes, ecchymoses or lesions. Cool and dry. HEAD: Atraumatic. Normocephalic. No temporal or scalp tenderness. EYES: Pupils equal round and reactive. Extraocular motions intact. No scleral icterus. No injection or drainage. ENT: Nose without bleeding, purulent drainage or septal hematoma. Throat without erythema, tonsillar hypertrophy or exudate. Uvula midline. Airway patent. NECK: Trachea midline. No JVD or lymphadenopathy. Supple, nontender, no meningeal signs. CARDIOVASCULAR: Regular rate and rhythm without murmurs, gallops, or rubs. RESPIRATORY: Clear to auscultation. Breath sounds equal bilaterally. No wheezes , rales, or rhonchi. GASTROINTESTINAL: + bowel sounds. Surgical scars noted. Abdomen soft, nontender, nondistended. No hepato-splenomegaly, or palpable masses. No guarding. MUSCULOSKELETAL: Extremities without clubbing, cyanosis, or edema. No joint tenderness, effusion, or edema noted. NEUROLOGICAL: Awake and alert. Cranial nerves II through XII intact. Motor and sensory grossly within normal limits. Five out of 5 muscle strength in all muscle groups. Normal speech. PSYCH: Mood and affect appropriate. Procedures None. Medications and IVs Current Medications Medications (Trade) Dose Ordered Sig/Laurie Route Start Time Stop Time Status Last Admin (NS Flush) 2 ml UNSCH PRN IV FLUSH 07/07/16 04:15 07/08/16 16:39 (NS Flush) 2 ml BID IV FLUSH 07/07/16 09:00 07/10/16 08:53 (Zofran Inj) 4 mg Q6H PRN IVP 07/07/16 04:15 07/09/16 17:53 (Narcan Inj) 0.4 mg UNSCH PRN IV 07/07/16 04:15 (Roxicodone) 5 mg Q4H PRN PO 07/07/16 08:45 07/08/16 19:59 (Roxicodone) 10 mg Q4H PRN PO 07/07/16 08:45 07/10/16 02:06 (Dilaudid Pf Inj) 0.5 mg Q4H PRN IV PUSH 07/07/16 08:45 07/09/16 17:54 (Habitrol 21 Mg Patch.24 Hr) 1 patch DAILY T-DERMAL 07/07/16 09:00 07/10/16 08:54 Miscellaneous Information 1 DAILY T-DERMAL 07/07/16 09:00 07/09/16 09:00 (Colace) 100 mg BID PO 07/07/16 09:00 07/10/16 08:54 (Senokot) 17.2 mg DAILY PO 07/07/16 09:00 07/10/16 08:54 (Lovenox Inj) 40 mg Q24H SQ 07/07/16 09:00 07/10/16 08:54 (Miralax) 17 gm DAILY PO 07/08/16 10:15 07/10/16 08:54 (Lactulose Liq) 30 ml DAILY PO 07/08/16 10:15 07/10/16 08:54 (Protonix) 40 mg DAILY PO 07/09/16 09:00 07/10/16 08:54 (Ambien) 5 mg HS PRN PO 07/08/16 15:15 07/09/16 22:16 (K-Lyte Cl Eff) 50 meq ONCE ONCE PO 07/10/16 10:00 07/10/16 10:01 UNV (Flagyl) 500 mg BID PO 07/10/16 10:00 UNV A/P Assessment and Plan Partial bowel obstruction The patient had abdominal pain and nausea. 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 She was advanced to a clear liquid diet. She has been having bowel movements. Pt with N/V so has been made NPO again. KUB with mild ileus. Symptoms improved and tolerating a clear liquid diet. She has been having bowel movements. - advance to bland, low residue diet. - d/c IVFs. - pain control with a bowel regimen. Added lactulose and MiraLAX. Dulcolax supp x 1. - Antiemetics as needed. - PPI. Elevated LFTs Appears to be chronic. Pneumobilia noted on CT of the abdomen. Improved. - outpt follow-up. Hyperglycemia Likely a stress reaction. - Hemoglobin A1c 5.9%. Nicotine dependence The patient smokes up to a pack and a half daily. She says she was told she has early COPD. - Cessation instruction. - Nicotine patch. UTI The patient is having incomplete urination and dysuria. UA indicative of possible infection. Culture growing Gardnerella. - Switch ceftriaxone to Flagyl to complete a 7 day course. PPx: Lovenox. Discharge Planning Possible discharge later today Jey Vance DO July 10, 2016 09:59
[2016-07-10 10:08] VITALS: BP 109/84; PULSE 90; RESP 15; TEMP 98; O2SAT 98
[2016-07-10] MEDS: metroNIDAZOLE 500 MG TAB PO SCH ×2 (10:50→22:15)
[2016-07-10] MEDS ORDERED: POTASSIUM CHLORIDE 25 MEQ EFFERVESCENT TAB PO ONE (11:00)
[2016-07-10 20:30] VITALS: BP_SYST 108; BP_SYST 148; BP_DIAS 84; PULSE 98; RESP 20; TEMP 98.3; O2SAT 94
[2016-07-11] VITALS: BP 110/89; PULSE 87; RESP 16; TEMP 97.7; O2SAT 98
[2016-07-11] MEDS: ZOLPIDEM TARTRATE 5 MG TAB PO PRN ×2 (01:37→21:11)
[2016-07-11 08:00] VITALS: BP 98/70; PULSE 78; RESP 16; TEMP 96.6; O2SAT 96
[2016-07-11] MEDS: ENOXAPARIN SODIUM 40 MG/0.4 ML SYRINGE SQ SCH (08:27)
[2016-07-11] MEDS: NICOTINE 21 MG/24 HR PATCH T-DERMAL SCH (08:27)
[2016-07-11] MEDS: metroNIDAZOLE 500 MG TAB PO SCH ×2 (08:27→21:08)
[2016-07-11] MEDS: SODIUM CHLORIDE 0.9% FLUSH 10 ML FLUSH IV FLUSH SCH ×2 (08:28→21:09)
[2016-07-11] MEDS: PANTOPRAZOLE SOD 40 MG DELAYED RELEASE TAB PO SCH (08:28)
[2016-07-11] MEDS: SENNOSIDES 8.6 MG TAB PO SCH (08:28)
[2016-07-11] MEDS: REMOVE OLD PATCH T-DERMAL SCH (08:28)
[2016-07-11] MEDS ORDERED: OXYC-392 PO (09:43)
[2016-07-11] MEDS ORDERED: DOCU1CAP39 PO (09:43)
[2016-07-11] MEDS ORDERED: METR-1 PO (09:43)
[2016-07-11] MEDS ORDERED: PROT40TA PO (09:43)
[2016-07-11] MEDS ORDERED: NICO21DI25 T-DERMAL (09:43)
--- NOTE | 2016-07-11 09:48 | HHI.DCPOC ---
Discharge Care Plan Diagnosis: (1) Abdominal pain (2) Ileus (3) Intractable abdominal pain Goals to Promote Your Health * To prevent worsening of your condition and complications * To maintain your health at the optimal level Directions to Meet Your Goals Take your medications as prescribed Follow your dietary instruction Follow activity as directed Keep your appointments as scheduled Take your immunizations and boosters as scheduled If your symptoms worsen call your PCP, if no PCP go to Urgent Care Center or Emergency Room Smoking is Dangerous to Your Health. Avoid second hand smoke Call the 24-hour hour crisis hotline for domestic abuse at Jey Vance DO July 11, 2016 09:48
--- NOTE | 2016-07-11 09:56 | HHI.DS ---
Discharge Summary Admission Date July 07, 2016 at 15:51 Discharge Date: July 12, 2016 Admitting Diagnosis intractable abdominal pain (1) Intractable abdominal pain ICD Code: R10.9 (2) Abdominal pain ICD Code: R10.9 Diagnosis: Principal (3) Ileus ICD Code: K56.7 Procedures None. Brief History - From Admission The patient is a 41-year-old female with past medical history of gastroschisis who is presenting to the hospital with abdominal pain. She said she had pasta for dinner and then an hour later she started to develop right lower quadrant pain. She said the pain was a squeezing sensation and she rated it as an 8 out of 10 in severity. She then said the pain started to radiate to the middle of her stomach. She has had nausea associated with the abdominal pain but has not been vomiting. She denies any fevers. She said she last had a bowel movement the day before yesterday. She is still passing gas. She has a decreased appetite. She says the pain medications are taking the edge off. She says she has had abdominal surgery in the past because of her condition of gastroschisis. CBC/BMP: 07/08/16 0605 07/10/16 0712 Significant Findings Laboratory Tests Test 07/09/16 07/10/16 06:51 07:12 Chloride Level 110 MEQ/L 111 MEQ/L (98-107) (98-107) Blood Urea Nitrogen 3 MG/DL (7-18) 1 MG/DL (7-18) Calcium Level 8.1 MG/DL 8.0 MG/DL (8.5-10.1) (8.5-10.1) Aspartate Amino Transf 72 U/L (15-37) 59 U/L (15-37) (AST/SGOT) Alanine Aminotransferase 87 U/L (10-53) 77 U/L (10-53) (ALT/SGPT) Albumin 3.1 GM/DL 2.8 GM/DL (3.4-5.0) (3.4-5.0) Potassium Level 3.4 MEQ/L (3.5-5.1) Random Glucose 123 MG/DL (74-106) Total Protein 6.2 GM/DL (6.4-8.2) Imaging Last Impressions Abdomen X-Ray 07/09/16 0000 Signed Impressions: Service Date/Time: Saturday, July 09, 2016 09:29 - CONCLUSION: Mild gaseous distention of the small bowel and colon similar to the prior study but no findings to suggest obstruction. 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 There is some distended loops of small bowel throughout the right abdomen without evidence of free air, bowel wall thickening, or definite level of obstruction. There is some stool type density throughout the small bowel especially in the right side of the abdomen similar to the 2015 exam. I don't clearly see a normal or abnormal appendix. Raymond Murphy MD PE at Discharge GENERAL: This is a well-nourished, well-developed patient, in no apparent distress. SKIN: No rashes, ecchymoses or lesions. Cool and dry. HEAD: Atraumatic. Normocephalic. No temporal or scalp tenderness. EYES: Pupils equal round and reactive. Extraocular motions intact. No scleral icterus. No injection or drainage. ENT: Nose without bleeding, purulent drainage or septal hematoma. Throat without erythema, tonsillar hypertrophy or exudate. Uvula midline. Airway patent. NECK: Trachea midline. No JVD or lymphadenopathy. Supple, nontender, no meningeal signs. CARDIOVASCULAR: Regular rate and rhythm without murmurs, gallops, or rubs. RESPIRATORY: Clear to auscultation. Breath sounds equal bilaterally. No wheezes , rales, or rhonchi. GASTROINTESTINAL: + bowel sounds. Surgical scars noted. Abdomen soft, nontender, nondistended. No hepato-splenomegaly, or palpable masses. No guarding. MUSCULOSKELETAL: Extremities without clubbing, cyanosis, or edema. No joint tenderness, effusion, or edema noted. NEUROLOGICAL: Awake and alert. Cranial nerves II through XII intact. Motor and sensory grossly within normal limits. Five out of 5 muscle strength in all muscle groups. Normal speech. PSYCH: Mood and affect appropriate. Pt update on day of discharge The patient was feeling like she wanted to go home. She said she still had pain in the right side but it was tolerable. She has been tolerating a diet. She did not want to take the MiraLAX here because it was expensive. Hospital Course Partial bowel obstruction The patient had abdominal pain and nausea. 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 She was advanced to a clear liquid diet. She has been having bowel movements. Pt with N/V so she was made NPO again. KUB with mild ileus. Symptoms improved and she was tolerating a clear liquid diet. She was advanced to a bland, low residue diet and did not tolerate it. GI was consulted. The pt received pain control with a bowel regimen. She received antiemetics as needed. PPI. She will follow up with GI as an outpt. Elevated LFTs/ HCV Appears to be chronic. Stable. Outpt follow-up with GI. Hyperglycemia Hemoglobin A1c was 5.9%. Nicotine dependence The patient smokes up to a pack and a half daily. She says she was told she has early COPD. She received cessation instruction. Nicotine patch was ordered. UTI The patient is having incomplete urination and dysuria. UA indicative of possible infection. Culture growing Gardnerella. She will be discharged on Flagyl to complete a 7 day course. Pt Condition on Discharge: Stable Discharge Disposition: Discharge Home Discharge Time: > 30 minutes Discharge Instructions Follow up Referrals: Gastroenterology - 2 Weeks with Earl Taylor MD PCP Follow-up - 1 Week New Medications: Sennosides (Senna-Tabs) 8.6 Mg Tab 17.2 MG PO DAILY Constipation #60 Ref 0 TAB Docusate Sodium (Dok) 100 Mg Cap 100 MG PO BID Constipation #60 CAP Metronidazole (Flagyl) 500 Mg Tab 500 MG PO BID UTI #10 TAB Nicotine (Eq Nicotine) 21 Mg/24 Hr Dis 1 PATCH T-DERMAL DAILY SMOKING #30 PATCH Oxycodone (Oxycodone) 5 Mg Tab 5 MG PO Q6HR PRN pain #20 TAB Pantoprazole (Protonix) 40 Mg Tab 40 MG PO DAILY Stomach #30 TAB Jey Vance DO July 11, 2016 09:56
--- NOTE | 2016-07-11 10:04 | MB ---
cc: EARL SERRATO MD DATE OF CONSULTATION 07/11/2016 TYPE OF CONSULTATION GI consult. REASON FOR CONSULTATION Abdominal pain and ileus. HISTORY OF THE PRESENT ILLNESS A 41-year-old female patient with past medical history positive for gastroschisis during her infancy. She required surgical treatment at that time. Otherwise is not known to have any chronic disease who presented to the hospital complaining of abdominal pain described as periumbilical area, sometimes radiating to the epigastric area associated with nausea and vomiting. She denies any fever. She denies any change in bowel habits and passing gas without any difficulty. No blood in her stools or mucus. No undigested food. The patient also denies any change in overall weight or appetite. Denies any alarming symptoms. The patient was seen in the hospital and was admitted for evaluation. She had a CT scan that showed distended bowel loop, small bowel right colon without any transitional points. A lot of fecal material in that area. She was treated conservatively with bowel rest along with other medicines that make her feel slightly better but every time when we start her on a diet the pain occurs again. The patient recalls similar attacks of abdominal pain similar in quality and description. It usually lasts for a few hours and this pain has been going on almost monthly for several years. During the hospitalization the patient was found to have normal blood tests except for abnormal liver enzymes. The patient is known to have chronic hepatitis C that never got treatment for it of unknown genotype. She was told before her PCR is undetectable or low. Later on her PCR was rechecked again and was quite high. She cannot recall the number. Other testing during hospitalization showed an imaging study that showed some distended loop of the small bowel throughout the right colon without evidence of free air. Some stool type density found in her small bowel. GI consulted for evaluation for reason for her abdominal pain and for failure to respond to conservative therapy at the current time. REVIEW OF SYSTEMS All fourteen-point elements negative for review of system except the ones mentioned in history of present illness. PAST MEDICAL HISTORY 1. Hepatitis C unknown genotype never treated. 2. Early COPD. 3. Right pneumothorax. PAST SURGICAL HISTORY 1. For gastroschisis status post surgical repair during infancy. 2. . ALLERGIES LOSARTAN. MEDICATIONS Prior to this admission, none. FAMILY HISTORY Positive for COPD. SOCIAL HISTORY She is a smoker with one pack per day. She drinks alcohol socially. Denies drug abuse. PHYSICAL EXAMINATION GENERAL: The patient was found to be comfortable not in distress or in pain. Hemodynamically stable. VITAL SIGNS: Blood pressure of 127/97, pulse rate of 98, temperature 97.9 and respiratory rate of 18. HEAD AND NECK: She is normocephalic, atraumatic. Pupils equal and reactive to light bilaterally. Supple neck. No lymphadenopathy. No thyromegaly. CHEST: Clear to auscultation bilaterally. No crackles or wheezes. HEART: Regular rate and rhythm. No murmurs. ABDOMEN: Soft. No tenderness in all four quadrants. Active bowel sounds. No hepatosplenomegaly. No palpable masses. EXTREMITIES: Normal pulses. No edema. NEUROLOGIC: Cranial nerves II-XII grossly intact. No focal motor or sensory deficits. SKIN: No rashes. ASSESSMENT/PLAN A 41-year-old female patient who presented with: 1. Symptoms of gastroenteritis in the form of abdominal pain, nausea after eating meal. 2. Recurrent attacks of abdominal pain of unknown etiology, never been evaluated in the past. 3. History of gastroschisis status post surgical repair as a child. 4. Ileus seen on the CT scan mostly with fecal material in the small bowel and ascending colon with no transitional area. 5. Pneumobilia noted on the on the imaging study. 6. Chronic hepatitis C of unknown type. RECOMMENDATIONS 1. Continue with the current treatment plan. 2. Conservative approach. 3. The patient will need endoscopy evaluation that can be done as an outpatient once more stable. 4. Check stools calprotectin. We will follow up with you. Earl PATEL /8:46 AM /9:33 AM NATHAN
--- NOTE | 2016-07-11 11:55 | HHI.PR ---
Subjective Remarks The patient has been ambulating the hallways. She says she still has not had any bowel movements today. She feels her abdomen is cramping up. She has been tolerating a diet. She was seen by GI earlier. Objective Vitals Vital Signs Date Time Temp Pulse Resp B/P Pulse Ox O2 Delivery O2 Flow Rate FiO2 07/11/16 08:00 96.6 78 16 98/70 96 07/11/16 00:00 97.7 87 16 110/89 98 07/10/16 20:30 98.3 98 20 108/84 94 I/O 07/10/16 07/10/16 07/10/16 07/11/16 07/11/16 07/11/16 07:00 15:00 23:00 07:00 15:00 23:00 Intake Total 1150 ml 480 ml 240 ml Balance 1150 ml 480 ml 240 ml Intake Oral 1150 ml 480 ml 240 ml # Voids 2 4 1 1 # Bowel Movements 0 0 Result Diagram: 07/08/16 0605 07/10/16 0712 Imaging Last Impressions Abdomen X-Ray 07/09/16 0000 Signed Impressions: Service Date/Time: Saturday, July 09, 2016 09:29 - CONCLUSION: Mild gaseous distention of the small bowel and colon similar to the prior study but no findings to suggest obstruction. 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 There is some distended loops of small bowel throughout the right abdomen without evidence of free air, bowel wall thickening, or definite level of obstruction. There is some stool type density throughout the small bowel especially in the right side of the abdomen similar to the 2015 exam. I don't clearly see a normal or abnormal appendix. Raymond Murphy MD Objective Remarks GENERAL: This is a well-nourished, well-developed patient, in no apparent distress. SKIN: No rashes, ecchymoses or lesions. Cool and dry. HEAD: Atraumatic. Normocephalic. No temporal or scalp tenderness. EYES: Pupils equal round and reactive. Extraocular motions intact. No scleral icterus. No injection or drainage. ENT: Nose without bleeding, purulent drainage or septal hematoma. Throat without erythema, tonsillar hypertrophy or exudate. Uvula midline. Airway patent. NECK: Trachea midline. No JVD or lymphadenopathy. Supple, nontender, no meningeal signs. CARDIOVASCULAR: Regular rate and rhythm without murmurs, gallops, or rubs. RESPIRATORY: Clear to auscultation. Breath sounds equal bilaterally. No wheezes , rales, or rhonchi. GASTROINTESTINAL: + bowel sounds. Surgical scars noted. Abdomen soft, nontender, nondistended. No hepato-splenomegaly, or palpable masses. No guarding. MUSCULOSKELETAL: Extremities without clubbing, cyanosis, or edema. No joint tenderness, effusion, or edema noted. NEUROLOGICAL: Awake and alert. Cranial nerves II through XII intact. Motor and sensory grossly within normal limits. Five out of 5 muscle strength in all muscle groups. Normal speech. PSYCH: Mood and affect appropriate. Procedures None. Medications and IVs Current Medications Medications (Trade) Dose Ordered Sig/Laurie Route Start Time Stop Time Status Last Admin (NS Flush) 2 ml UNSCH PRN IV FLUSH 07/07/16 04:15 07/08/16 16:39 (NS Flush) 2 ml BID IV FLUSH 07/07/16 09:00 07/11/16 08:28 (Zofran Inj) 4 mg Q6H PRN IVP 07/07/16 04:15 07/09/16 17:53 (Narcan Inj) 0.4 mg UNSCH PRN IV 07/07/16 04:15 (Roxicodone) 5 mg Q4H PRN PO 07/07/16 08:45 07/08/16 19:59 (Roxicodone) 10 mg Q4H PRN PO 07/07/16 08:45 07/11/16 01:36 (Dilaudid Pf Inj) 0.5 mg Q4H PRN IV PUSH 07/07/16 08:45 07/09/16 17:54 (Habitrol 21 Mg Patch.24 Hr) 1 patch DAILY T-DERMAL 07/07/16 09:00 07/11/16 08:27 Miscellaneous Information 1 DAILY T-DERMAL 07/07/16 09:00 07/11/16 08:28 (Colace) 100 mg BID PO 5/25/17 09:00 07/10/16 08:54 (Senokot) 17.2 mg DAILY PO 07/07/16 09:00 07/10/16 08:54 (Lovenox Inj) 40 mg Q24H SQ 07/07/16 09:00 07/11/16 08:27 (Miralax) 17 gm DAILY PO 07/08/16 10:15 07/10/16 08:54 (Lactulose Liq) 30 ml DAILY PO 07/08/16 10:15 Hold 07/10/16 08:54 (Protonix) 40 mg DAILY PO 07/09/16 09:00 07/11/16 08:28 (Ambien) 5 mg HS PRN PO 07/08/16 15:15 07/11/16 01:37 (Flagyl) 500 mg BID PO 07/10/16 10:00 07/11/16 08:27 A/P Problem List: (1) Intractable abdominal pain ICD Code: R10.9 Status: Acute (2) Abdominal pain ICD Code: R10.9 Status: Acute (3) Ileus ICD Code: K56.7 Status: Acute Assessment and Plan Partial bowel obstruction The patient had abdominal pain and nausea. 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 She was advanced to a clear liquid diet. She has been having bowel movements. Pt with N/V so has been made NPO again. KUB with mild ileus. Symptoms improved and tolerating a clear liquid diet. She has been having bowel movements. GI consult appreciated. - advance to bland, low residue diet. - d/c IVFs. - pain control with a bowel regimen. - Antiemetics as needed. - PPI. - follow up with GI as an outpt for EGD and fecal calprotectin. Elevated LFTs Appears to be chronic. Pneumobilia noted on CT of the abdomen. Improved. - follow LFTs. Hyperglycemia Likely a stress reaction. - Hemoglobin A1c 5.9%. Nicotine dependence The patient smokes up to a pack and a half daily. She says she was told she has early COPD. - Cessation instruction. - Nicotine patch. UTI The patient is having incomplete urination and dysuria. UA indicative of possible infection. Culture growing Gardnerella. - Switch ceftriaxone to Flagyl to complete a 7 day course. Hypokalemia Likely secondary to decreased by mouth intake and watery stools. - Continue to monitor and replete as needed. PPx: Lovenox. Discharge Planning Possible discharge later today or tomorrow Jey Vance DO July 11, 2016 11:55
[2016-07-11 12:00] VITALS: BP 97/60; PULSE 92; RESP 16; TEMP 96.7; O2SAT 98
[2016-07-11 15:20] LABS: CHLORIDE 108 MEQ/L (98-107); POTASSIUM 3.6 MEQ/L (3.5-5.1); SODIUM (NA) 142 MEQ/L (136-145)
[2016-07-11 15:34] LABS: ALKALINE PHOSPHATASE 100 U/L (45-117); ALT (GPT) 86 U/L (10-53); ANION GAP 6 MEQ/L (5-15); AST (GOT) 61 U/L (15-37); BICARBONATE 27.9 MEQ/L (21.0-32.0); BLOOD UREA NITROGEN 4 MG/DL (7-18); GLOMERULAR FILTRATION RATE 85 ML/MIN (>89); MAGNESIUM 2.1 MG/DL (1.5-2.5); TOTAL BILIRUBIN ADULT 0.3 MG/DL (0.2-1.0)
[2016-07-11 16:00] VITALS: BP 109/85; PULSE 81; RESP 20; TEMP 98.8; O2SAT 98
[2016-07-11] MEDS ORDERED: POTASSIUM CHLORIDE 25 MEQ EFFERVESCENT TAB PO ONE (19:00)
[2016-07-11 20:00] VITALS: BP 121/83; PULSE 90; RESP 20; TEMP 98.8; O2SAT 99
[2016-07-11] MEDS: DOCUSATE SODIUM 100 MG CAP PO SCH (21:08)
[2016-07-12] VITALS: BP 123/83; PULSE 84; RESP 20; TEMP 98.1; O2SAT 97
[2016-07-12 08:00] VITALS: BP 111/79; PULSE 76; RESP 18; TEMP 97.6; O2SAT 98
[2016-07-12] MEDS: metroNIDAZOLE 500 MG TAB PO SCH (08:37)
[2016-07-12] MEDS: DOCUSATE SODIUM 100 MG CAP PO SCH (08:37)
[2016-07-12] MEDS: POLYETHYLENE GLYCOL 17 GM PKG PO SCH (08:38)
[2016-07-12] MEDS: PANTOPRAZOLE SOD 40 MG DELAYED RELEASE TAB PO SCH (08:39)
[2016-07-12] MEDS: REMOVE OLD PATCH T-DERMAL SCH (08:39)
[2016-07-12] MEDS: SENNOSIDES 8.6 MG TAB PO SCH (08:39)
[2016-07-12] MEDS: ENOXAPARIN SODIUM 40 MG/0.4 ML SYRINGE SQ SCH (08:39)
[2016-07-12] MEDS: NICOTINE 21 MG/24 HR PATCH T-DERMAL SCH (08:40)
[2016-07-12] MEDS: SODIUM CHLORIDE 0.9% FLUSH 10 ML FLUSH IV FLUSH SCH (08:40)
[2016-07-12] MEDS ORDERED: SENN8.6T36 PO (09:01)
== END 2016-07-12 10:00 | disposition home or self-care (01) | DRG 388 ==
LOC: PHED 00:38 → PHEDA 03:52 → PH3A 07:53 → OBSVTOIN 15:51
PROVIDERS: ADMIT Hospitalist; ATTEND Hospitalist
DX: K56.7 Ileus, unspecified (principal); Q79.2 Exomphalos; N39.0 Urinary tract infection, site not specified; B96.89 Other specified bacterial agents as the cause of diseases classified elsewhere; E87.6 Hypokalemia; J44.9 Chronic obstructive pulmonary disease, unspecified; F17.210 Nicotine dependence, cigarettes, uncomplicated; B18.2 Chronic viral hepatitis C; R73.9 Hyperglycemia, unspecified
CPT/HCPCS: 74000; 74177; 80048; 80053; 80076; 81001; 83036; 83690; 83735; 85025; 87086; 96361; 96374; 96375; C9113; J0696; J1170; J1650; J2270; J2405; J2765; J7030; Q9967

== ENCOUNTER 2017-01-04 01:05 | Inpatient (IN) | payer SELFPAY ==
[2017-01-04] VITALS (8 sets, daily range): BP systolic 112–149; BP diastolic 74–88; PULSE 74–105; RESP 17–22; TEMP 96.3–98.1; O2SAT 94–98
[~2017-01-04] VITALS: Ht 167.6 cm; Wt 89.3 kg
[~2017-01-04 01:05] MED LIST changes: -COLY4000S PO; -DICY1TAB26 PO; +DOCU1CAP39 PO; +METR-1 PO; +NICO21DI25 T-DERMAL; +OXYC-392 PO; +PROT40TA PO; +SENN8.6T36 PO; -VERA27.5
[2017-01-04] MEDS ORDERED: HYDROmorphone HCL PF 0.5 MG/0.5 ML SYRINGE IV ONE ×2 (02:15→03:30)
[2017-01-04] MEDS ORDERED: HYDROmorphone HCL PF 1 MG/ML VIAL IVS ONE ×2 (02:15→03:15)
[2017-01-04] MEDS ORDERED: ONDANSETRON HCL 4 MG/2 ML VIAL IVP ONE ×2 (02:15→03:15)
[2017-01-04] MEDS ORDERED: SODIUM CHLORIDE 0.9% FLUSH 10 ML FLUSH IV FLUSH PRN ×2 (02:15→03:45)
[2017-01-04 02:16] LABS: AUTOMATED NEUTROPHIL # 8.3 TH/MM3 (1.8-7.7); BASOPHIL % 0.3 % (0.0-2.0); EOSINOPHIL # 0.1 TH/MM3 (0-0.4); EOSINOPHIL % 1.2 % (0.0-4.0); HEMATOCRIT 44.5 % (35.0-46.0); HEMO FLAGS DIFF FINAL; LYMPH % 16.2 % (9.0-44.0); LYMPHOCYTE # 1.8 TH/MM3 (1.0-4.8); MEAN CELL VOLUME 92.3 FL (80.0-100.0); MEAN CORPUSCULAR HEMOGLOBIN 31.1 PG (27.0-34.0); MEAN CORPUSCULAR HGB CONC 33.7 % (32.0-36.0); MONO % 7.8 % (0.0-8.0); NEUT % 74.5 % (16.0-70.0); PLATELET COUNT 339 TH/MM3 (150-450); RED BLOOD COUNT 4.82 MIL/MM3 (4.00-5.30); RED CELL DISTRIBUTION WIDTH 12.6 % (11.6-17.2); WHITE BLOOD COUNT 11.1 TH/MM3 (4.0-11.0)
[2017-01-04] MEDS ORDERED: LEXA10TA PO (02:17)
[2017-01-04] MEDS ORDERED: TRAZ100T10 PO (02:17)
[2017-01-04] MEDS ORDERED: LORA0.5T PO (02:17)
[2017-01-04 02:23] LABS: CHLORIDE 106 MEQ/L (98-107); POTASSIUM 3.6 MEQ/L (3.5-5.1); SODIUM (NA) 137 MEQ/L (136-145)
[2017-01-04 02:27] LABS: ANION GAP 9 MEQ/L (5-15); BICARBONATE 22.1 MEQ/L (21.0-32.0); BLOOD UREA NITROGEN 16 MG/DL (7-18)
[2017-01-04 02:30] LABS: ALT (GPT) 92 U/L (10-53); AST (GOT) 58 U/L (15-37); GLOMERULAR FILTRATION RATE 77 ML/MIN (>89)
[2017-01-04 02:32] LABS: TOTAL BILIRUBIN ADULT 0.3 MG/DL (0.2-1.0)
[2017-01-04 02:33] LABS: ALKALINE PHOSPHATASE 118 U/L (45-117)
[2017-01-04 02:35] LABS: BETA HCG QUANT LESS THAN 1 MIU/ML (0-5)
[2017-01-04 02:48] LABS: BLOOD, URINE NEG (NEG); GLUCOSE,URINE NEG (NEG); KETONE, URINE NEG (NEG); NITRITE,URINE NEG (NEG); PH, URINE 5.5 (5.0-8.5)
[2017-01-04 02:54] LABS: URINE COLOR YELLOW (YELLW/STRAW)
[2017-01-04 02:55] LABS: MUCUS URINE MOD /lpf (OCC); SQUAMOUS EPITHELIAL CELL URINE 0-5 /hpf (0-5)
[2017-01-04 02:56] LABS: RBC, URINE 0-3 /hpf (0-3)
[2017-01-04] MEDS ORDERED: IOHEXOL 350 MG/ML 10 ML VIAL (for RAD DIAG) IVCONTRAST ONE (02:56)
[2017-01-04 02:58] LABS: COMMENT (UR) CULT NOT INDICATED; CULTURE IF INDICATED CULT NOT INDICATED
[2017-01-04] MEDS ORDERED: SODIUM CHLOR 0.9% 1000 ML INJ 1,000 ML IV SCH (03:07)
--- NOTE | 2017-01-04 03:13 | PD ---
HPI Chief Complaint: Abdominal Pain Time Seen by Provider: 01:57 Travel History International Travel<30 days: No Contact w/Intl Traveler<30days: No Traveled to known affect area: No History of Present Illness HPI The patient is a 41-year-old female with a history of born with omphalocele and who has abdominal pains several times a month who comes in with abdominal pain, nausea and vomiting for 5 hours. She denies any fever. She denies any dysuria , frequency or urgency. Her last admission for intractable pain was in June of this year. The patient's last alcohol was 2 days ago. She does have a history of alcohol abuse. On her last admission she was referred to a oil changer but never followed up because she does not have insurance and cannot afford gastroenterology consultation. She states her makes too much money for Medicaid. PFSH Past Medical History Anxiety: Yes Depression: Yes Cancer: No Cardiovascular Problems: No COPD: Yes Diabetes: No Diminished Hearing: No Endocrine: Yes Gastrointestinal Disorders: Yes (multiple gi surgeries, organs external at ) GERD: Yes Genitourinary: No Hepatitis: Yes (C) Immune Disorder: No Implanted Vascular Access Dvce: No Neurologic: No Psychiatric: Yes Reproductive: No Respiratory: Yes Immunizations Current: Yes Tetanus Vaccination: < 5 Years Influenza Vaccination: No ?: Unknown LMP: One week ago : 5 Para: 3 Miscarriage: 0 : 2 Past Surgical History Abdominal Surgery: Yes (2 as ) Body Medical Devices: not sure about abdominal surgeries Section: Yes Gynecologic Surgery: Yes (C-SECTIONS) Other Surgery: Yes (LIVER VALVE REPAIR (CHILD), CHEST TUBE 02/25) Social History Alcohol Use: Yes (Occ.) Tobacco Use: Yes (1 PPD) Substance Use: No Allergies-Medications (Allergen,Severity, Reaction): Coded Allergies: doxycycline (Unverified Allergy, Intermediate, NAUSEA/VOMITING, 01/04/17) Reported Meds & Prescriptions Reported Meds & Active Scripts Active Reported Lorazepam 0.5 Mg Tab 0.5 Mg PO TID PRN Trazodone (Trazodone HCl) 100 Mg Tablet 100 Mg PO HS Lexapro (Escitalopram Oxalate) 10 Mg Tab 10 Mg PO DAILY Review of Systems Except as stated in HPI: all other systems reviewed are Neg Physical Exam Narrative GENERAL: The patient is alert, oriented 3 in moderate apparent distress with her abdominal discomfort. Her vital signs show respiratory rate of 22 and blood pressure 149/88 but are otherwise normal. SKIN: Focused skin assessment warm/dry. HEAD: Atraumatic. Normocephalic. EYES: Pupils equal and round. No scleral icterus. No injection or drainage. ENT: No nasal bleeding or discharge. Mucous membranes pink and moist. NECK: Trachea midline. No JVD. CARDIOVASCULAR: Regular rate and rhythm. No murmur appreciated. RESPIRATORY: No accessory muscle use. Clear to auscultation. Breath sounds equal bilaterally. GASTROINTESTINAL: Abdomen soft, with diffuse tenderness to direct palpation in the upper quadrants and, to a lesser extent, lower quadrants, nondistended. Hepatic and splenic margins not palpable. No guarding or rebound is present. MUSCULOSKELETAL: No obvious deformities. No clubbing. No cyanosis. No edema. NEUROLOGICAL: Awake and alert. No obvious cranial nerve deficits. Motor grossly within normal limits. Normal speech. PSYCHIATRIC: Appropriate mood and affect; insight and judgment normal. Data Data Last Documented VS Vital Signs Date Time Temp Pulse Resp B/P (MAP) Pulse Ox O2 Delivery O2 Flow Rate FiO2 01/04/17 02:14 98 01/04/17 01:10 98.1 98 22 Orders Orders Beta Hcg (Quant/Titer) (01/04/17 02:02) Complete Blood Count With Diff (01/04/17 02:02) Comprehensive Metabolic Panel (01/04/17 02:02) Lipase (01/04/17 02:02) Urinalysis - C+S If Indicated (01/04/17 02:02) Ct Abd/Pel W Iv Contrast(Rout) (01/04/17 02:02) Iv Access Insert/Monitor (01/04/17 02:02) Ecg Monitoring (01/04/17 02:02) Oximetry (01/04/17 02:02) Sodium Chloride 0.9% Flush (Ns Flush) (01/04/17 02:15) Ondansetron Inj (Zofran Inj) (01/04/17 02:15) Hydromorphone Pf Inj (Dilaudid Pf Inj) (01/04/17 02:15) Iohexol 350 Inj (Omnipaque 350 Inj) (01/04/17 02:56) Ondansetron Inj (Zofran Inj) (01/04/17 03:15) Sodium Chlor 0.9% 1000 Ml Inj (Ns 1000 M (01/04/17 03:07) Hydromorphone Pf Inj (Dilaudid Pf Inj) (01/04/17 03:30) Labs Laboratory Tests Test 01/04/17 01:50 01/04/17 02:40 White Blood Count 11.1 TH/MM3 Red Blood Count 4.82 MIL/MM3 Hemoglobin 15.0 GM/DL Hematocrit 44.5 % Mean Corpuscular Volume 92.3 FL Mean Corpuscular Hemoglobin 31.1 PG Mean Corpuscular Hemoglobin Concent 33.7 % Red Cell Distribution Width 12.6 % Platelet Count 339 TH/MM3 Mean Platelet Volume 9.0 FL Neutrophils (%) (Auto) 74.5 % Lymphocytes (%) (Auto) 16.2 % Monocytes (%) (Auto) 7.8 % Eosinophils (%) (Auto) 1.2 % Basophils (%) (Auto) 0.3 % Neutrophils # (Auto) 8.3 TH/MM3 Lymphocytes # (Auto) 1.8 TH/MM3 Monocytes # (Auto) 0.9 TH/MM3 Eosinophils # (Auto) 0.1 TH/MM3 Basophils # (Auto) 0.0 TH/MM3 CBC Comment DIFF FINAL Differential Comment Blood Urea Nitrogen 16 MG/DL Creatinine 0.82 MG/DL Random Glucose 163 MG/DL Total Protein 7.9 GM/DL Albumin 3.5 GM/DL Calcium Level 8.1 MG/DL Alkaline Phosphatase 118 U/L Aspartate Amino Transf (AST/SGOT) 58 U/L Alanine Aminotransferase (ALT/SGPT) 92 U/L Total Bilirubin 0.3 MG/DL Sodium Level 137 MEQ/L Potassium Level 3.6 MEQ/L Chloride Level 106 MEQ/L Carbon Dioxide Level 22.1 MEQ/L Anion Gap 9 MEQ/L Estimat Glomerular Filtration Rate 77 ML/MIN Lipase 287 U/L Human Chorionic Gonadotropin, Quant LESS THAN 1 MIU/ML Urine Color YELLOW Urine Turbidity SLIGHT Urine pH 5.5 Urine Specific [place] 1.031 Urine Protein NEG mg/dL Urine Glucose (UA) NEG mg/dL Urine Ketones NEG mg/dL Urine Occult Blood NEG Urine Nitrite NEG Urine Bilirubin NEG Urine Leukocyte Esterase NEG Urine RBC 0-3 /hpf Urine Squamous Epithelial Cells 0-5 /hpf Urine Amorphous Sediment MOD Urine Mucus MOD /lpf Microscopic Urinalysis Comment CULT NOT INDICATED MDM Medical Decision Making Medical Screen Exam Complete: Yes Emergency Medical Condition: Yes Medical Record Reviewed: Yes Interpretation(s) The urinalysis shows normal and culture is not indicated. The CBC shows a white count of 11,100 with 75% neutrophils but is otherwise normal. The complete metabolic profile shows a glucose of 163, GFR of 77, calcium 8.1, alkaline phosphatase 118, GOT 58 and GPT of 92. The complete metabolic profile is otherwise normal. The lipase is normal. The beta-hCG is less than 1. The CT abdomen/pelvis with IV contrast shows distal small bowel obstruction, congenital malrotation is present but not appearing to be contributory to the bowel obstruction. The obstruction is likely due to adhesions. There also was an enlarged liver. Differential Diagnosis Small bowel obstruction, pancreatitis, drug seeking behavior, colitis, intractable abdominal pain, intractable vomiting Narrative Course The patient appears to have a distal small bowel obstruction. She also has intractable abdominal pain. I discussed the patient with Dr. Schafer and the patient will be admitted to her for 23 hour observation. Diagnosis Primary Impression: Small bowel obstruction Additional Impression: Intractable abdominal pain Admitting Information Admitting Physician Requests: Observation Darrell Forrester MD Jan 04, 2017 03:13
--- NOTE | 2017-01-04 03:32 | RADRPT ---
EXAM DATE/TIME: 01/04/2017 02:40 [facility] COMPARISON: CT ABDOMEN & PELVIS W CONTRAST, July 07, 2016, 2:23. INDICATIONS : Bilateral upper and lower quadrant pain. Nausea. IV CONTRAST: 100 cc Omnipaque 350 (iohexol) IV ORAL CONTRAST: No oral contrast ingested. RADIATION DOSE: 20.35 CTDIvol (mGy) MEDICAL HISTORY : Gastroesophageal reflux disease. Hepatitis C. Chronic obstructive pulmonary disease. SURGICAL HISTORY : Cholecystectomy. ENCOUNTER: Initial ACUITY: 1 day PAIN SCALE: 9/10 LOCATION: Bilateral lower quadrant upper quadrant TECHNIQUE: Volumetric scanning of the abdomen and pelvis was performed. Using automated exposure control and ad justment of the mA and/or kV according to patient size, radiation dose was kept as low as reasonably achievable to obtain optimal diagnostic quality images. DICOM format image data is available electro nically for review and comparison. FINDINGS: LOWER LUNGS: The visualized lower lungs are clear. LIVER: Liver is enlarged. No focal hepatic lesion. No evidence of biliary distention. SPLEEN: Normal size without lesion. PANCREAS: Within normal limits. KIDNEYS: Normal in size and shape. There is no mass, stone or hydronephrosis. ADRENAL GLANDS: Within normal limits. VASCULAR: There is no aortic aneurysm. BOWEL/MESENTERY: Most of the small bowel is on the right. Duodenum does not cross the midline. Reportedly, history of omphalocele. Most of the small bowel loops are moderately distended and fluid-filled. Some distal non distended loops can be seen, for example series 2 image 38. I don't see a mass. There is trace free f luid. ABDOMINAL WALL: Within normal limits. RETROPERITONEUM: There is no lymphadenopathy. BLADDER: No wall thickening or mass. REPRODUCTIVE: Within normal limits. INGUINAL: There is no lymphadenopathy or hernia. MUSCULOSKELETAL: Within normal limits for patient age. CONCLUSION: 1. Distal small bowel obstruction. There is congenital malrotation but does not appear to be acutely contributory. I don't see a mass. Obstruction presumably related to adhesion. 2. Enlarged liver. Morris Friend MD on January 04, 2017 at 3:22 Board Certified Radiologist. This report was verified electronically.
[2017-01-04] MEDS: SODIUM CHLOR 0.9% 1000 ML INJ 1,000 ML IV SCH ×3 (03:43→23:43)
[2017-01-04] MEDS ORDERED: ACETAMINOPHEN 325 MG TAB PO PRN (03:45)
[2017-01-04] MEDS ORDERED: LACTULOSE SYRUP 20 GM/30 ML CUP PO PRN (03:45)
[2017-01-04] MEDS ORDERED: SENNOSIDES 8.6 MG TAB PO PRN (03:45)
[2017-01-04] MEDS ORDERED: BISACODYL 10 MG SUPP RECTAL PRN (03:45)
[2017-01-04] MEDS ORDERED: NALOXONE HCL 0.4 MG/ML AMP IV PUSH PRN ×2 (03:45→10:45)
[2017-01-04] MEDS ORDERED: ONDANSETRON HCL 4 MG/2 ML VIAL IVP PRN (03:45)
[2017-01-04] MEDS ORDERED: MAGNESIUM HYDROXIDE SUSP 30 ML CUP PO PRN (03:45)
[2017-01-04] MEDS: HYDROmorphone HCL PF 0.5 MG/0.5 ML SYRINGE IV PRN ×3 (07:50→18:33)
[2017-01-04] MEDS: SODIUM CHLORIDE 0.9% FLUSH 10 ML FLUSH IV FLUSH SCH ×2 (09:00→20:32)
[2017-01-04] MEDS: DOCUSATE SODIUM 50 MG/SENNA 8.6 MG TAB PO SCH ×2 (09:11→20:32)
--- NOTE | 2017-01-04 09:20 | RADRPT ---
EXAM DATE/TIME: 01/04/2017 07:53 [facility] COMPARISON: ABDOMEN FLAT & UPRIGHT, September 24, 2014, 14:54. INDICATIONS : Abdomen pain. MEDICAL HISTORY : gastroschisis.Gastroesophageal reflux disease. Hepatitis C. Chronic obstructive pulmonary disease SURGICAL HISTORY : Cholecystectomy. section. Liver valve repair. Multiple bowel reconstruction ENCOUNTER: Subsequent ACUITY: 2 days PAIN SCORE: 10/10 LOCATION: Bilateral lower quadrant and upper quadrant abdomen FINDINGS: Supine and upright views of the abdomen were performed. The abdominal bowel gas pattern is normal. No air fluid levels are seen. No abnormal masses, calcifications, or organomegaly is seen. The visu alized lower lungs are clear. No evidence of free intraperitoneal gas. The osseous structures are u nremarkable. Contrast within the bladder. IUD in place. Significant stool throughout the colon. CONCLUSION: Normal examination. Significant stool throughout the colon. Raymond Murphy MD on January 04, 2017 at 9:18 Board Certified Radiologist. This report was verified electronically.
--- NOTE | 2017-01-04 11:12 | HHI.HP ---
[facility] Primary Care Physician Admission Diagnosis small bowel obstruction, intractable abdominal pain Diagnoses: (1) Abdominal pain Diagnosis: Principal (2) Small bowel obstruction Diagnosis: Principal Chief Complaint: Abdominal pain Travel History International Travel<30 Days: No Contact w/Intl Traveler <30 Da: No Traveled to Known Affected Are: No History of Present Illness Written by Silverio Forrester, acting as scribe for Dr. Sharma on 01/04/17 at 11 :11. 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 Patient states that she is in normal state of health until 8:30 last night when she developed sudden onset of 10/10 pain in her mid abdomen and progressively consumed her whole abdomen. Patient states that she tolerated the pain for approximately 4 hours and she had come to the hospital because the pain was relentless. She indicates that the pain medication that she was given did not do much for her pain. She had workup done which did indicate a distal small bowel obstruction likely from adhesions. Patient indicates that she has had this pain in the past. Patient has documented history of recurrent evaluations for abdominal pain, the most recent was June of this year. Patient indicates that her last bowel movement was yesterday. She has regular bowel movements daily. Denies any constipation or diarrhea. Denies any melena or hematochezia. Patient states that she ate clam chowder yesterday for dinner. She did have nausea and vomiting in the emergency department. Denies any fever , chills, chest pain, shortness of breath, dyspnea. Review of Systems Gastrointestinal: COMPLAINS OF: Abdominal pain Except as stated in HPI: all other systems reviewed are Neg Past Family Social History Past Medical History Chronic recurrent abdominal pain Chronic tobacco use History of hepatitis C with chronic transaminitis Hyperglycemia with previous hemoglobin A1c 5.9 Chronic obstructive pulmonary disease History of right spontaneous pneumothorax History of gastroschisis Past Surgical History Abdominal surgery for gastroschisis Reported Medications Reported Meds & Active Scripts Active Reported Lorazepam 0.5 Mg Tab 0.5 Mg PO TID PRN Trazodone (Trazodone HCl) 100 Mg Tablet 100 Mg PO HS Lexapro (Escitalopram Oxalate) 10 Mg Tab 10 Mg PO DAILY Allergies: Coded Allergies: doxycycline (Unverified Allergy, Intermediate, NAUSEA/VOMITING, 01/04/17) Family History Reviewed and significant for chronic obstructive pulmonary disease. Denies any heart disease, kidney disease, diabetes, seizures, stroke Social History Patient continues smoke one pack a cigarettes a day since she was 13 years old. Drink alcohol approximately 2 times weekly. Denies any illicit drug use Physical Exam Vital Signs Vital Signs Date Time Temp Pulse Resp B/P (MAP) Pulse Ox O2 Delivery O2 Flow Rate FiO2 01/04/17 07:50 96.9 74 20 134/83 (100) 97 01/04/17 05:09 96.7 90 20 128/75 (92) 96 01/04/17 04:52 01/04/17 03:52 89 18 112/74 (87) 96 Room Air 01/04/17 02:14 98 01/04/17 01:10 98.1 98 22 149/88 (108) 98 Physical Exam GENERAL: Well-developed, well-nourished, in no acute distress. alert and orientated HEENT: Head is normocephalic without any lesions or masses noted. Facial features are symmetric. Eyes: Pupils equal round reactive to light. Extraocular muscles are intact. Conjunctivae were clear. Oropharyngeal: Pharynx without any erythema edema. Tongue is midline without deviation. Buccal mucosa is moist without any masses or lesions NECK: Supple without any masses. Trachea midline no deviation. No JVD, no bruits are appreciated CARDIAC: Regular rhythm, regular rate. S1/S2 are heard. No murmurs gallops or rubs. LUNGS: Clear to auscultation bilaterally. No wheeze, rhonchi or rales. No use of accessory muscles on inspiration or expiration. ABDOMEN: Soft, tenderness noted in mid abdomen. Nondistended. Bowel sounds heard in all 4 quadrants. No organomegaly or masses. Negative rebound, negative guarding EXTREMITIES: No edema, pulses are equal bilaterally. No cyanosis or clubbing NEUROLOGY: Mood, patient appears to be very dramatic and affect appears heightened. Cranial nerves II through XII grossly intact. Muscle strength 5/5 in upper and lower extremities bilaterally. Deep tendon reflexes are 2+ in upper and lower extremities bilaterally. Laboratory Laboratory Tests Test 01/04/17 01:50 01/04/17 02:40 White Blood Count 11.1 Red Blood Count 4.82 Hemoglobin 15.0 Hematocrit 44.5 Mean Corpuscular Volume 92.3 Mean Corpuscular Hemoglobin 31.1 Mean Corpuscular Hemoglobin Concent 33.7 Red Cell Distribution Width 12.6 Platelet Count 339 Mean Platelet Volume 9.0 Neutrophils (%) (Auto) 74.5 Lymphocytes (%) (Auto) 16.2 Monocytes (%) (Auto) 7.8 Eosinophils (%) (Auto) 1.2 Basophils (%) (Auto) 0.3 Neutrophils # (Auto) 8.3 Lymphocytes # (Auto) 1.8 Monocytes # (Auto) 0.9 Eosinophils # (Auto) 0.1 Basophils # (Auto) 0.0 CBC Comment DIFF FINAL Differential Comment Blood Urea Nitrogen 16 Creatinine 0.82 Random Glucose 163 Total Protein 7.9 Albumin 3.5 Calcium Level 8.1 Alkaline Phosphatase 118 Aspartate Amino Transf (AST/SGOT) 58 Alanine Aminotransferase (ALT/SGPT) 92 Total Bilirubin 0.3 Sodium Level 137 Potassium Level 3.6 Chloride Level 106 Carbon Dioxide Level 22.1 Anion Gap 9 Estimat Glomerular Filtration Rate 77 Lipase 287 Human Chorionic Gonadotropin, Quant LESS THAN 1 Urine Color YELLOW Urine Turbidity SLIGHT Urine pH 5.5 Urine Specific [place] 1.031 Urine Protein NEG Urine Glucose (UA) NEG Urine Ketones NEG Urine Occult Blood NEG Urine Nitrite NEG Urine Bilirubin NEG Urine Leukocyte Esterase NEG Urine RBC 0-3 Urine Squamous Epithelial Cells 0-5 Urine Amorphous Sediment MOD Urine Mucus MOD Microscopic Urinalysis Comment CULT NOT INDICATED Result Diagram: 01/04/17 0150 01/04/17 0150 Imaging Last Impressions Abdomen/Pelvis CT 01/04/17 0202 Signed Impressions: Service Date/Time: Wednesday, January 04, 2017 02:40 - CONCLUSION: 1. Distal small bowel obstruction. There is congenital malrotation but does not appear to be acutely contributory. I don't see a mass. Obstruction presumably related to adhesion. 2. Enlarged liver. Morris Friend MD Abdomen X-Ray 01/04/17 0000 Signed Impressions: Service Date/Time: Wednesday, January 04, 2017 07:53 - CONCLUSION: Normal examination. Significant stool throughout the colon. MD Israel Franklin VTE Risk Assessment Caprinjhonatan VTE Risk Assessment: Mod/High Risk (score >= 2) VTE Pharm Contraindication: possible surgery Caprini Risk Assessment Model Point Value = 1 Point Value = 2 Point Value = 3 Point Value = 5 Age 41-60 Minor surgery BMI > 25 kg/m2 Swollen legs Varicose veins or History of unexplained or recurrent spontaneous Oral contraceptives or hormone replacement Sepsis (< 1 month) Serious lung disease, including pneumonia (< 1 month) Abnormal pulmonary function Acute myocardial infarction Congestive heart failure (< 1 month) History of inflammatory bowel disease Medical patient at bed rest Age 61-74 Arthroscopic surgery Major open surgery (> 45 min) Laparoscopic surgery (> 45 min) Malignancy Confined to bed (> 72 hours) Immobilizing plaster cast Central venous access Age >= 75 History of VTE Family history of VTE Factor V Leiden Prothrombin [id number] Lupus anticoagulant Anticardiolipin antibodies Elevated serum homocysteine Heparin-induced thrombocytopenia Other congenital or acquired thrombophilia Stroke (< 1 month) Elective arthroplasty Hip, pelvis, or leg fracture Acute spinal cord injury (< 1 month) Prophylaxis Regimen Total Risk Factor Score Risk Level Prophylaxis Regimen 0-1 Low Early ambulation 2 Moderate Order ONE of the following: *Sequential Compression Device (SCD) *Heparin 5000 units SQ BID 3-4 Higher Order ONE of the following medications: *Heparin 5000 units SQ TID *Enoxaparin/Lovenox 40 mg SQ daily (WT < 150 kg, CrCl > 30 mL/min) *Enoxaparin/Lovenox 30 mg SQ daily (WT < 150 kg, CrCl > 10-29 mL/min) *Enoxaparin/Lovenox 30 mg SQ BID (WT < 150 kg, CrCl > 30 mL/min) AND/OR *Sequential Compression Device (SCD) 5 or more Highest Order ONE of the following medications: *Heparin 5000 units SQ TID (Preferred with Epidurals) *Enoxaparin/Lovenox 40 mg SQ daily (WT < 150 kg, CrCl > 30 mL/min) *Enoxaparin/Lovenox 30 mg SQ daily (WT < 150 kg, CrCl > 10-29 mL/min) *Enoxaparin/Lovenox 30 mg SQ BID (WT < 150 kg, CrCl > 30 mL/min) AND *Sequential Compression Device (SCD) Assessment and Plan Problem List: (1) Small bowel obstruction ICD Code: K56.609 - Unspecified intestinal obstruction, unspecified as to partial versus complete obstruction Status: Acute Assessment and Plan Small bowel obstruction with abrupt set of abdominal pain CT scan does indicate distal small bowel obstruction from congenital malrotation Follow-up KUB indicates normal examination with significant stool throughout the colon General surgery consulted to recommending transferred to the main hospital for possible surgical intervention Keep nothing by mouth, continue IV fluids, continue pain control Chronic transaminitis with history of hepatitis C Enzymes appear to be stable as compared to previous admissions Hyperglycemia Previous hemoglobin A1c 5.9 in June Recheck hemoglobin A1c Patient is nothing by mouth at this time, start sliding scale insulin if needed DVT prevention Sequential compression devices, avoid chemical prophylaxis secondary to possible surgery This note was transcribed by haven Forrester. I, Dr. Martell Sharma personally performed the history, physical exam, and medical decision making; and confirmed the accuracy of the information in the transcribed note. Authenticated by Dr. Martell Sharma on 01/04/17 at 11:11. Code Status Full code Discussed Condition With Patient Silverio Forrester Jan 04, 2017 11:12 Martell Sharma MD Jan 04, 2017 11:12
[2017-01-04] MEDS ORDERED: HYDROmorphone HCL PF 0.5 MG/0.5 ML SYRINGE IV PUSH ONE (11:15)
[2017-01-04] MEDS: MORPHINE SULFATE 30 MG/30 ML PCA IV SCH (15:44)
[2017-01-04] MEDS: PCA - TOTAL MG MORPHINE DELIVERED PER SHIFT SCH ×2 (15:44→20:33)
--- NOTE | 2017-01-04 16:52 | PD.CONS ---
cc: Valerie Wells MD [facility] Service General Surgery Consult Requested By Dr. Schafer Reason for Consult Small bowel obstruction Primary Care Physician No Primary Care Physician History of Present Illness Is a 41-year-old female with a past medical history of anxiety, depression, COPD , hepatitis C born with omphalocele. She had multiple surgeries as a child. She reports that she has had abdominal pain for several months off and on. She reports she has had severe abdominal pain for about 5 hours prior to arriving to the emergency department; rates it an 8/10 intensity. The patient does have associated nausea and vomiting. Patient denies any fevers. The patient has not been around any sick contacts and has not eaten anything different. A CT abdomen and pelvis was obtained which shows a distal small bowel obstruction and congenital malrotation. Her white blood cell count is mildly elevated otherwise her laboratory work is unremarkable. The patient does report that she had a bowel movement yesterday which was loose. The patient reports that she had a similar type episode earlier this year and was scheduled to follow-up with a tipple boss but due to her lack of insurance she was unable to do so. A General Surgery consultation is requested for evaluation of small bowel obstruction. Review of Systems Constitutional: COMPLAINS OF: Change in appetite, DENIES: Fatigue Endocrine: DENIES: Polydipsia, Polyuria, Polyphagia Eyes: DENIES: Diplopia Ears, nose, mouth, throat: DENIES: Hearing loss Respiratory: DENIES: Cough, Snoring Cardiovascular: DENIES: Palpitations Gastrointestinal: COMPLAINS OF: Abdominal pain, Diarrhea, Nausea, Vomiting, DENIES: Constipation Genitourinary: DENIES: Urinary frequency Musculoskeletal: DENIES: Joint pain Integumentary: DENIES: Abnormal pigmentation Hematologic/lymphatic: DENIES: Bruising Immunologic/allergic: DENIES: Eczema Neurologic: DENIES: Abnormal gait, Headache Psychiatric: DENIES: Confusion, Mood changes, Depression Past Family Social History Past Medical History Anxiety Depression COPD Hepatitis C Past Surgical History 1 Liver valve repair as a child Multiple abdominal surgeries as an Reported Medications Lexapro Trazodone Lorazepam Allergies: Coded Allergies: doxycycline (Unverified Allergy, Intermediate, NAUSEA/VOMITING, 01/04/17) Active Ordered Medications Current Medications Medications (Trade) Dose Ordered Sig/Laurie Route Start Time Stop Time Status Last Admin Sodium Chloride 1,000 ml @ 100 mls/hr Q10H IV 01/04/17 03:43 01/04/17 14:38 (NS Flush) 2 ml UNSCH PRN IV FLUSH 01/04/17 03:45 (NS Flush) 2 ml BID IV FLUSH 01/04/17 09:00 (Tylenol) 650 mg Q4H PRN PO 01/04/17 03:45 (Zofran Inj) 4 mg Q6H PRN IVP 01/04/17 03:45 (Narcan Inj) 0.4 mg UNSCH PRN IV PUSH 01/04/17 03:45 (Tri-Colace) 1 tab BID PO 01/04/17 09:00 01/04/17 09:11 (Milk Of Magnesia Liq) 30 ml Q12H PRN PO 01/04/17 03:45 (Senokot) 17.2 mg Q12H PRN PO 01/04/17 03:45 (Dulcolax Supp) 10 mg DAILY PRN RECTAL 01/04/17 03:45 (Lactulose Liq) 30 ml DAILY PRN PO 01/04/17 03:45 (Dilaudid Pf Inj) 1 mg Q4H PRN IV 01/04/17 04:00 01/04/17 12:26 (Morphine 1 Mg/ ml COURT REPORTER) 30 mg UNSCH IV 01/04/17 10:45 01/04/17 15:[address] REPORTER Dosage Infused (Pha) 1 Q8HR .XX 01/04/17 14:00 01/04/17 15:44 Family History Noncontributory Social History Positive tobacco use--one pack per day Occasional EtOH use; socially; not daily And denies illicit drug use Physical Exam Vital Signs Vital Signs Date Time Temp Pulse Resp B/P (MAP) Pulse Ox O2 Delivery O2 Flow Rate FiO2 01/04/17 16:00 96.3 95 17 137/85 (102) 94 01/04/17 15:44 17 01/04/17 15:44 17 01/04/17 11:55 97.7 92 20 129/83 (98) 95 01/04/17 07:50 96.9 74 20 134/83 (100) 97 01/04/17 05:09 96.7 90 20 128/75 (92) 96 01/04/17 04:52 01/04/17 03:52 89 18 112/74 (87) 96 Room Air 01/04/17 02:14 98 01/04/17 01:10 98.1 98 22 149/88 (108) 98 Physical Exam GENERAL: A 41-year-old female resting in bed in no acute distress. SKIN: Warm and dry. HEAD: Atraumatic. Normocephalic. EYES: Pupils equal and round. No scleral icterus. No injection or drainage. ENT: No nasal bleeding or discharge. Mucous membranes pink and moist. NECK: Trachea midline. CARDIOVASCULAR: Regular rate and rhythm. RESPIRATORY: No accessory muscle use. Clear to auscultation. Breath sounds equal bilaterally. GASTROINTESTINAL: Abdomen soft, minimally distended. Mild abdominal pain with RLQ and LLQ with palpation. Large well healed midline incision. Large well healed transverse incision. MUSCULOSKELETAL: Extremities without clubbing, cyanosis, or edema. No obvious deformities. NEUROLOGICAL: Awake and alert. No obvious cranial nerve deficits. Motor grossly within normal limits. Five out of 5 muscle strength in the arms and legs. Normal speech. PSYCHIATRIC: Appropriate mood and affect; insight and judgment normal. Laboratory Laboratory Tests Test 01/04/17 01:50 01/04/17 02:40 White Blood Count 11.1 Red Blood Count 4.82 Hemoglobin 15.0 Hematocrit 44.5 Mean Corpuscular Volume 92.3 Mean Corpuscular Hemoglobin 31.1 Mean Corpuscular Hemoglobin Concent 33.7 Red Cell Distribution Width 12.6 Platelet Count 339 Mean Platelet Volume 9.0 Neutrophils (%) (Auto) 74.5 Lymphocytes (%) (Auto) 16.2 Monocytes (%) (Auto) 7.8 Eosinophils (%) (Auto) 1.2 Basophils (%) (Auto) 0.3 Neutrophils # (Auto) 8.3 Lymphocytes # (Auto) 1.8 Monocytes # (Auto) 0.9 Eosinophils # (Auto) 0.1 Basophils # (Auto) 0.0 CBC Comment DIFF FINAL Differential Comment Blood Urea Nitrogen 16 Creatinine 0.82 Random Glucose 163 Total Protein 7.9 Albumin 3.5 Calcium Level 8.1 Alkaline Phosphatase 118 Aspartate Amino Transf (AST/SGOT) 58 Alanine Aminotransferase (ALT/SGPT) 92 Total Bilirubin 0.3 Sodium Level 137 Potassium Level 3.6 Chloride Level 106 Carbon Dioxide Level 22.1 Anion Gap 9 Estimat Glomerular Filtration Rate 77 Lipase 287 Human Chorionic Gonadotropin, Quant LESS THAN 1 Urine Color YELLOW Urine Turbidity SLIGHT Urine pH 5.5 Urine Specific [place] 1.031 Urine Protein NEG Urine Glucose (UA) NEG Urine Ketones NEG Urine Occult Blood NEG Urine Nitrite NEG Urine Bilirubin NEG Urine Leukocyte Esterase NEG Urine RBC 0-3 Urine Squamous Epithelial Cells 0-5 Urine Amorphous Sediment MOD Urine Mucus MOD Microscopic Urinalysis Comment CULT NOT INDICATED Result Diagram: 01/04/1714901/04/17 015 Imaging Last 48 hours Impressions Abdomen/Pelvis CT 01/04/17 0202 Signed Impressions: Service Date/Time: Wednesday, January 04, 2017 02:40 - CONCLUSION: 1. Distal small bowel obstruction. There is congenital malrotation but does not appear to be acutely contributory. I don't see a mass. Obstruction presumably related to adhesion. 2. Enlarged liver. Morris Friend MD Abdomen X-Ray 01/04/17 0000 Signed Impressions: Service Date/Time: Wednesday, January 04, 2017 07:53 - CONCLUSION: Normal examination. Significant stool throughout the colon. Raymond Murphy MD Assessment and Plan Assessment and Plan 41 year old female with SBO -Plan for SBFT tomorrow -NPO- okay for a few ice chips -Pain control -OOB and mobilize -Patient transferred to the main for possible exploratory laparotomy if not improvement -Thank you for this consult; We will continue to follow Pt seen and examined in her room. History reviewed. She claims pain is 9/10 but she walks around room and talks on cellphone. Has had pain for many years. Comes and goes. Was here for a week in June with same pain. Had normal BM yesterday. Overall belly is soft, no R/G, active BS. CT reviewed and compared with previous CT. Not much change. No acute process. Mild bowel dilation but is diffuse. no transition point. gas and stool throughout colon. no free fluid or bowel thickening. I explained to pt she has a very complex surgical history and her abdomen is likely full of adhesions. I would not recommend surgery at this time. Discussed evaluation at [facility] but she said she does not have insurance and thinks they won't take her. Will get FU labs and do serial exam. She does not have surgical abdomen at this time. Will get her a COURT REPORTER for her acute on chronic pain. VALERIE WELLS MD FACS Discussed Condition With Dr. Rehana Harp. Sariradha JudStephanie gleason Jan 04, 2017 16:52 Valerie Wells MD Jan 04, 2017 17:20
[2017-01-04 17:15] LABS: HEMOGLOBIN A1a 0.9 %; HEMOGLOBIN A1b 1.7 %; HEMOGLOBIN Ao 84.5 %; HEMOGLOBIN LA1C 2.3 %; HEMOGLOBIN P3 3.8 %
[2017-01-05] VITALS (8 sets, daily range): BP systolic 108–143; BP diastolic 60–83; PULSE 84–117; RESP 16–22; TEMP 97.1–98.9; O2SAT 92–96
[2017-01-05] MEDS: ONDANSETRON HCL 4 MG/2 ML VIAL IVP PRN ×3 (00:22→16:12)
[2017-01-05 05:23] LABS: BASOPHIL % 0.3 % (0.0-2.0); EOSINOPHIL # 0.1 TH/MM3 (0-0.4); EOSINOPHIL % 1.6 % (0.0-4.0); HEMATOCRIT 39.7 % (35.0-46.0); HEMO FLAGS DIFF FINAL; LYMPH % 23.2 % (9.0-44.0); LYMPHOCYTE # 1.8 TH/MM3 (1.0-4.8); MEAN CELL VOLUME 93.8 FL (80.0-100.0); MEAN CORPUSCULAR HEMOGLOBIN 31.6 PG (27.0-34.0); MEAN CORPUSCULAR HGB CONC 33.7 % (32.0-36.0); NEUT % 64.9 % (16.0-70.0); PLATELET COUNT 266 TH/MM3 (150-450); RED BLOOD COUNT 4.23 MIL/MM3 (4.00-5.30); RED CELL DISTRIBUTION WIDTH 12.6 % (11.6-17.2); WHITE BLOOD COUNT 7.8 TH/MM3 (4.0-11.0)
[2017-01-05 05:47] LABS: AMYLASE 31 U/L (25-115); ANION GAP 8 MEQ/L (5-15); AST (GOT) 45 U/L (15-37); BICARBONATE 23.5 MEQ/L (21.0-32.0); BLOOD UREA NITROGEN 8 MG/DL (7-18); CHLORIDE 107 MEQ/L (98-107); GLOMERULAR FILTRATION RATE 94 ML/MIN (>89); POTASSIUM 3.5 MEQ/L (3.5-5.1); SODIUM (NA) 138 MEQ/L (136-145)
[2017-01-05 05:49] LABS: ALT (GPT) 67 U/L (10-53)
[2017-01-05 05:51] LABS: ALKALINE PHOSPHATASE 103 U/L (45-117); TOTAL BILIRUBIN ADULT 0.7 MG/DL (0.2-1.0)
[2017-01-05] MEDS: PCA - TOTAL MG MORPHINE DELIVERED PER SHIFT SCH ×3 (06:00→19:00)
[2017-01-05] MEDS: MORPHINE SULFATE 30 MG/30 ML PCA IV SCH ×2 (06:20→19:08)
[2017-01-05] MEDS ORDERED: PROMETHAZINE INJ 25 MG/ML VIAL IM ONE (06:45)
--- NOTE | 2017-01-05 08:47 | HHI.PR ---
Subjective Subjective Notes no acute issues, +vomit overnight, +flatus, no bm Objective Vitals/I&O Vital Signs Date Time Temp Pulse Resp B/P (MAP) Pulse Ox O2 Delivery O2 Flow Rate FiO2 01/05/17 08:00 97.1 84 17 119/74 (89) 95 01/04/17 03:52 Room Air Labs Laboratory Tests Test 01/05/17 04:38 White Blood Count 7.8 Red Blood Count 4.23 Hemoglobin 13.4 Hematocrit 39.7 Mean Corpuscular Volume 93.8 Mean Corpuscular Hemoglobin 31.6 Mean Corpuscular Hemoglobin Concent 33.7 Red Cell Distribution Width 12.6 Platelet Count 266 Mean Platelet Volume 9.1 Neutrophils (%) (Auto) 64.9 Lymphocytes (%) (Auto) 23.2 Monocytes (%) (Auto) 10.0 Eosinophils (%) (Auto) 1.6 Basophils (%) (Auto) 0.3 Neutrophils # (Auto) 5.0 Lymphocytes # (Auto) 1.8 Monocytes # (Auto) 0.8 Eosinophils # (Auto) 0.1 Basophils # (Auto) 0.0 CBC Comment DIFF FINAL Differential Comment Blood Urea Nitrogen 8 Creatinine 0.69 Random Glucose 119 Total Protein 6.9 Albumin 3.3 Calcium Level 8.1 Alkaline Phosphatase 103 Aspartate Amino Transf (AST/SGOT) 45 Alanine Aminotransferase (ALT/SGPT) 67 Total Bilirubin 0.7 Sodium Level 138 Potassium Level 3.5 Chloride Level 107 Carbon Dioxide Level 23.5 Anion Gap 8 Estimat Glomerular Filtration Rate 94 Amylase Level 31 Lipase 152 Radiology Last 48 hours Impressions Abdomen/Pelvis CT 01/04/17 0202 Signed Impressions: Service Date/Time: Wednesday, January 04, 2017 02:40 - CONCLUSION: 1. Distal small bowel obstruction. There is congenital malrotation but does not appear to be acutely contributory. I don't see a mass. Obstruction presumably related to adhesion. 2. Enlarged liver. Morris Friend MD Abdomen X-Ray 01/04/17 0000 Signed Impressions: Service Date/Time: Wednesday, January 04, 2017 07:53 - CONCLUSION: Normal examination. Significant stool throughout the colon. Raymond Murphy MD Abdomen: Other (soft mild distension, diffuse tenderness no rebound) A/P Assessment and Plan 41 year old female with SBO PLAN SBFT today npo check and correct lytes encourage Fermin Baer MD Jan 05, 2017 08:47
[2017-01-05] MEDS: SODIUM CHLORIDE 0.9% FLUSH 10 ML FLUSH IV FLUSH SCH ×2 (09:00→19:42)
[2017-01-05] MEDS: DOCUSATE SODIUM 50 MG/SENNA 8.6 MG TAB PO SCH ×2 (11:02→19:44)
--- NOTE | 2017-01-05 11:08 | HHI.PR ---
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 No chest pains or SOB. + flatus but no BM Objective Vitals Vital Signs Date Time Temp Pulse Resp B/P (MAP) Pulse Ox O2 Delivery O2 Flow Rate FiO2 01/05/17 08:00 97.1 84 17 119/74 (89) 95 01/05/17 06:20 18 01/05/17 06:20 18 01/05/17 06:00 18 01/05/17 04:00 97.7 103 20 121/83 (96) 96 01/05/17 00:00 97.9 117 22 125/82 (96) 94 01/04/17 20:33 18 01/04/17 20:00 96.8 105 20 130/88 (102) 94 01/04/17 16:00 96.3 95 17 137/85 (102) 94 01/04/17 15:44 17 01/04/17 15:44 17 01/04/17 11:55 97.7 92 20 129/83 (98) 95 I/O 01/04/17 01/04/17 01/04/17 01/05/17 01/05/17 01/05/17 07:00 15:00 23:00 07:00 15:00 23:00 Intake Total 1200 ml 425 ml 629 ml Output Total 550 ml Balance 1200 ml 425 ml 79 ml Intake Oral 0 ml 0 ml IV Total 1200 ml 425 ml 629 ml Emesis 550 ml # Voids 1 1 # Bowel Movements 0 Result Diagram: 01/05/17 0438 01/05/17 0438 Imaging Last Impressions Abdomen/Pelvis CT 01/04/17 0202 Signed Impressions: Service Date/Time: Wednesday, January 04, 2017 02:40 - CONCLUSION: 1. Distal small bowel obstruction. There is congenital malrotation but does not appear to be acutely contributory. I don't see a mass. Obstruction presumably related to adhesion. 2. Enlarged liver. Morris Friend MD Abdomen X-Ray 01/04/17 0000 Signed Impressions: Service Date/Time: Wednesday, January 04, 2017 07:53 - CONCLUSION: Normal examination. Significant stool throughout the colon. Raymond Murphy MD Objective Remarks GENERAL: laying in bed. Eyes: Extraocular muscles are intact. NECK: Trachea midline no deviation. CARDIAC: Regular rhythm, regular rate. LUNGS: Clear to auscultation bilaterally. No wheeze, rhonchi or rales. ABDOMEN: Soft, tenderness noted in mid abdomen. Nondistended. well healed scar noted. EXTREMITIES: No edema, pulses are equal bilaterally. NEUROLOGY: Mood, patient appears to be somewhat dramatic and affect appears heightened. Cranial nerves II through XII grossly intact. Muscle strength 5/5 in upper and lower extremities bilaterally. A/P Problem List: (1) Small bowel obstruction ICD Code: K56.609 - Unspecified intestinal obstruction, unspecified as to partial versus complete obstruction Status: Acute Assessment and Plan Small bowel obstruction with abrupt set of abdominal pain CT scan does indicate distal small bowel obstruction from congenital malrotation Follow-up KUB indicates normal examination with significant stool throughout the colon General surgery following. plan is for small bowel follow through w possible intervention. Keep nothing by mouth, continue IV fluids, continue pain control Chronic transaminitis with history of hepatitis C Enzymes appear to be stable as compared to previous admissions Hyperglycemia Previous hemoglobin A1c 5.9 in June hemoglobin A1c 6.0 Patient is nothing by mouth at this time, start sliding scale insulin if needed DVT prevention Sequential compression devices, avoid chemical prophylaxis secondary to possible surgery Discharge Planning small bowel follow through today w possible intervention Adwoa Murguia MD Jan 05, 2017 11:08
[2017-01-05] MEDS ORDERED: DIATRIZOATE MEGLUM/DIATRIZOATE SOD 120 ML BTL (for RAD DIAG) PO ONE (14:18)
[2017-01-05] MEDS: SODIUM CHLOR 0.9% 1000 ML INJ 1,000 ML IV SCH ×2 (16:08→19:42)
--- NOTE | 2017-01-05 20:16 | RADRPT ---
EXAM DATE/TIME: 01/05/2017 13:20 [place] COMPARISON: No previous studies available for comparison. INDICATIONS : Abdominal pain with nausea and vomiting. Possible obstruction. FLUORO TIME: minutes IMAGE COUNT: CONTRAST: [facility] IMAGING TIME(S): 15 min, 30 min, 45 min, 1 hr, 1.5 hrs2HR. 4HR. MEDICAL HISTORY : Gastroesophageal reflux disease. Hepatitis C. Chronic obstructive pulmonary disease. SURGICAL HISTORY : Cholecystectomy. section. Liver valve repair as a child. Multiple infant bowel reconstructi on. ENCOUNTER: Subsequent ACUITY: 2 days PAIN SCORE: 10/10 LOCATION: Bilateral abdomen. FINDINGS: The small bowel is mildly dilated. There is no obstruction to the flow of Gastrografin into the colon . There is a mild ileus. CONCLUSION: 1. Mild dilatation of small bowel without obstruction to flow of Gastrografin. Mild ileus present. Joseph Camejo MD on January 05, 2017 at 20:12 Board Certified Radiologist. This report was verified electronically.
[2017-01-06] VITALS (7 sets, daily range): BP systolic 112–135; BP diastolic 67–80; PULSE 82–101; RESP 16–20; TEMP 97.2–99.5; O2SAT 93–98
[2017-01-06] MEDS: SODIUM CHLOR 0.9% 1000 ML INJ 1,000 ML IV SCH ×2 (02:06→15:09)
[2017-01-06] MEDS: PCA - TOTAL MG MORPHINE DELIVERED PER SHIFT SCH ×3 (05:50→21:07)
[2017-01-06 06:10] LABS: AUTOMATED NEUTROPHIL # 2.6 TH/MM3 (1.8-7.7); BASOPHIL % 0.6 % (0.0-2.0); EOSINOPHIL # 0.1 TH/MM3 (0-0.4); EOSINOPHIL % 1.9 % (0.0-4.0); HEMO FLAGS DIFF FINAL; LYMPH % 29.8 % (9.0-44.0); LYMPHOCYTE # 1.4 TH/MM3 (1.0-4.8); MEAN CELL VOLUME 92.9 FL (80.0-100.0); MEAN CORPUSCULAR HEMOGLOBIN 32.8 PG (27.0-34.0); MEAN CORPUSCULAR HGB CONC 35.3 % (32.0-36.0); MONO % 11.2 % (0.0-8.0); NEUT % 56.5 % (16.0-70.0); PLATELET COUNT 161 TH/MM3 (150-450); RED BLOOD COUNT 3.66 MIL/MM3 (4.00-5.30); RED CELL DISTRIBUTION WIDTH 12.4 % (11.6-17.2); WHITE BLOOD COUNT 4.6 TH/MM3 (4.0-11.0)
[2017-01-06 06:27] LABS: BICARBONATE 22.1 MEQ/L (21.0-32.0); POTASSIUM 3.5 MEQ/L (3.5-5.1)
[2017-01-06] MEDS: SODIUM CHLORIDE 0.9% FLUSH 10 ML FLUSH IV FLUSH SCH ×2 (08:04→20:44)
--- NOTE | 2017-01-06 08:04 | HHI.PR ---
Subjective Subjective Notes feels better, less pain today, report multiple loose BMs with contrast for SBFT , no N/V Objective Vitals/I&O Vital Signs Date Time Temp Pulse Resp B/P (MAP) Pulse Ox O2 Delivery O2 Flow Rate FiO2 01/06/17 05:50 18 01/06/17 04:00 97.2 101 113/73 (86) 93 01/04/17 03:52 Room Air Labs Laboratory Tests Test 01/06/17 05:42 White Blood Count 4.6 Red Blood Count 3.66 Hemoglobin 12.0 Hematocrit 34.0 Mean Corpuscular Volume 92.9 Mean Corpuscular Hemoglobin 32.8 Mean Corpuscular Hemoglobin Concent 35.3 Red Cell Distribution Width 12.4 Platelet Count 161 Mean Platelet Volume 9.4 Neutrophils (%) (Auto) 56.5 Lymphocytes (%) (Auto) 29.8 Monocytes (%) (Auto) 11.2 Eosinophils (%) (Auto) 1.9 Basophils (%) (Auto) 0.6 Neutrophils # (Auto) 2.6 Lymphocytes # (Auto) 1.4 Monocytes # (Auto) 0.5 Eosinophils # (Auto) 0.1 Basophils # (Auto) 0.0 CBC Comment DIFF FINAL Differential Comment Hematology Comments Blood Urea Nitrogen 6 Creatinine 0.48 Random Glucose 68 Calcium Level 7.5 Sodium Level 139 Potassium Level 3.5 Chloride Level 108 Carbon Dioxide Level 22.1 Anion Gap 9 Estimat Glomerular Filtration Rate 143 Radiology Last 48 hours Impressions Abdomen/Pelvis CT 01/04/17 0202 Signed Impressions: Service Date/Time: Wednesday, January 04, 2017 02:40 - CONCLUSION: 1. Distal small bowel obstruction. There is congenital malrotation but does not appear to be acutely contributory. I don't see a mass. Obstruction presumably related to adhesion. 2. Enlarged liver. Morris Friend MD Abdomen X-Ray 01/04/17 0000 Signed Impressions: Service Date/Time: Wednesday, January 04, 2017 07:53 - CONCLUSION: Normal examination. Significant stool throughout the colon. Raymond Murphy MD Abdomen: Non-distended, BS normal Narrative Exam mild tenderness, no R/G A/P Assessment and Plan ABD pain - acute on chronic, h/o gastrochisis/omphalocele. 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 Jayro Kimball MD Jan 06, 2017 08:04
[2017-01-06] MEDS: DOCUSATE SODIUM 50 MG/SENNA 8.6 MG TAB PO SCH ×2 (08:06→20:44)
--- NOTE | 2017-01-06 11:09 | HHI.PR ---
Subjective Remarks Pt complaining of 7/10 right lower quadrant pain after eating breakfast, states she only had 2 bites of cornflakes and some bagel. She denies any nausea or vomiting at this time. Objective Vitals Vital Signs Date Time Temp Pulse Resp B/P (MAP) Pulse Ox O2 Delivery O2 Flow Rate FiO2 01/06/17 08:00 98.4 82 16 115/78 (90) 98 01/06/17 05:50 18 01/06/17 04:00 97.2 101 19 113/73 (86) 93 01/06/17 00:00 97.6 100 19 112/67 (82) 94 01/05/17 20:00 98.6 104 18 123/80 (94) 93 01/05/17 19:42 18 01/05/17 19:13 18 01/05/17 19:08 18 01/05/17 19:00 18 01/05/17 16:00 98.9 98 18 143/60 (87) 93 01/05/17 12:00 97.7 86 16 108/67 (81) 92 I/O 01/05/17 01/05/17 01/05/17 01/06/17 01/06/17 01/06/17 07:00 15:00 23:00 07:00 15:00 23:00 Intake Total 629 ml 1240 ml 1000 ml Output Total 550 ml Balance 79 ml 1240 ml 1000 ml Intake Oral 0 ml 240 ml 0 ml IV Total 629 ml 1000 ml 1000 ml Emesis 550 ml # Voids 1 5 1 # Bowel Movements 7 1 Result Diagram: 01/06/17 0542 01/06/17 0542 Imaging Last Impressions Small Bowel X-Ray 01/05/17 0600 Signed Impressions: Service Date/Time: December 13:20 - CONCLUSION: 1. Mild dilatation of small bowel without obstruction to flow of Gastrografin. Mild ileus present. Joseph Camejo MD Abdomen/Pelvis CT 01/04/17 0202 Signed Impressions: Service Date/Time: Wednesday, January 04, 2017 02:40 - CONCLUSION: 1. Distal small bowel obstruction. There is congenital malrotation but does not appear to be acutely contributory. I don't see a mass. Obstruction presumably related to adhesion. 2. Enlarged liver. Morris Friend MD Abdomen X-Ray 01/04/17 0000 Signed Impressions: Service Date/Time: Wednesday, January 04, 2017 07:53 - CONCLUSION: Normal examination. Significant stool throughout the colon. Raymond Murphy MD Objective Remarks GENERAL: laying in bed. Eyes: Extraocular muscles are intact. NECK: Trachea midline no deviation. CARDIAC: Regular rhythm, regular rate. LUNGS: Clear to auscultation bilaterally. No wheeze, rhonchi or rales. ABDOMEN: Soft, tenderness noted in mid abdomen, right lower quadrant area. No guarding or rebound. Nondistended. well healed scar noted. EXTREMITIES: No edema, pulses are equal bilaterally. NEUROLOGY: Mood, patient appears to be somewhat dramatic and affect appears heightened. Cranial nerves II through XII grossly intact. A/P Problem List: (1) Small bowel obstruction ICD Code: K56.609 - Unspecified intestinal obstruction, unspecified as to partial versus complete obstruction Status: Acute Assessment and Plan Small bowel obstruction with abrupt set of abdominal pain CT scan does indicate distal small bowel obstruction from congenital malrotation Follow-up KUB indicates normal examination with significant stool throughout the colon Small bowel follow throw shows mild dilatation of small bowel without obstruction to flow of gastrografin, mild ileus noted. General surgery following. no surgical intervention recommended. Continue pain control and they have added po pain meds and wean AUTO TIRE RECAPPER. Diet has been advanced to a regular diet. Chronic transaminitis with history of hepatitis C Enzymes appear to be stable as compared to previous admissions Hyperglycemia Previous hemoglobin A1c 5.9 in June hemoglobin A1c 6.0 DVT prevention Sequential compression devices, avoid chemical prophylaxis secondary to possible surgery. Pt has been ambulatory Discharge Planning Still requiring AUTO TIRE RECAPPER. encouraged pt to take PO pain meds and wean AUTO TIRE RECAPPER. No surgical intervention planned for now. Adwoa Murguia MD Jan 06, 2017 11:09
[2017-01-06] MEDS: MORPHINE SULFATE 30 MG/30 ML PCA IV SCH (11:45)
[2017-01-06] MEDS: oxyCODONE/ACETAMINOPHEN 5 MG/325 MG TAB PO PRN (21:03)
[2017-01-07] VITALS: BP 120/73; PULSE 89; RESP 20; TEMP 97.9; O2SAT 96
[2017-01-07] MEDS: oxyCODONE/ACETAMINOPHEN 5 MG/325 MG TAB PO PRN ×5 (01:10→20:07)
[2017-01-07] MEDS: PCA - TOTAL MG MORPHINE DELIVERED PER SHIFT SCH (05:13)
[2017-01-07 05:23] VITALS: RESP 18
[2017-01-07 08:00] VITALS: BP 133/67; PULSE 88; RESP 17; TEMP 96.9; O2SAT 97
[2017-01-07] MEDS: SODIUM CHLORIDE 0.9% FLUSH 10 ML FLUSH IV FLUSH SCH ×2 (08:43→20:09)
[2017-01-07] MEDS: DOCUSATE SODIUM 50 MG/SENNA 8.6 MG TAB PO SCH ×2 (08:43→20:07)
--- NOTE | 2017-01-07 10:25 | HHI.PR ---
Subjective Remarks Pt states she still has some pain , tolerated diet. no nausea or vomiting Objective Vitals Vital Signs Date Time Temp Pulse Resp B/P (MAP) Pulse Ox O2 Delivery O2 Flow Rate FiO2 01/07/17 08:00 96.9 88 17 133/67 (89) 97 01/07/17 05:23 18 01/07/17 05:13 18 01/07/17 00:00 97.9 89 20 120/73 (89) 96 01/06/17 21:07 18 01/06/17 20:06 18 01/06/17 20:00 99.5 99 20 135/80 (98) 97 01/06/17 16:00 98.0 93 17 122/75 (91) 96 01/06/17 12:00 98.9 97 17 125/77 (93) 95 01/06/17 11:45 16 01/06/17 11:42 16 I/O 01/06/17 01/06/17 01/06/17 01/07/17 01/07/17 01/07/17 07:00 15:00 23:00 07:00 15:00 23:00 Intake Total 1000 ml 1140 ml 954 ml Balance 1000 ml 1140 ml 954 ml Intake Oral 0 ml 1140 ml 240 ml IV Total 1000 ml 714 ml # Voids 1 3 2 # Bowel Movements 1 3 Result Diagram: 01/06/17 0542 01/06/17 0542 Imaging Last Impressions Small Bowel X-Ray 01/05/17 0600 Signed Impressions: Service Date/Time: December 13:20 - CONCLUSION: 1. Mild dilatation of small bowel without obstruction to flow of Gastrografin. Mild ileus present. Joseph Camejo MD Abdomen/Pelvis CT 01/04/17 0202 Signed Impressions: Service Date/Time: Wednesday, January 04, 2017 02:40 - CONCLUSION: 1. Distal small bowel obstruction. There is congenital malrotation but does not appear to be acutely contributory. I don't see a mass. Obstruction presumably related to adhesion. 2. Enlarged liver. Morris Friend MD Abdomen X-Ray 01/04/17 0000 Signed Impressions: Service Date/Time: Wednesday, January 04, 2017 07:53 - CONCLUSION: Normal examination. Significant stool throughout the colon. Raymond Murphy MD Objective Remarks GENERAL: noted to be ambulating down the halls w no difficulties. Eyes: Extraocular muscles are intact. NECK: Trachea midline no deviation. CARDIAC: Regular rhythm, regular rate. LUNGS: Clear to auscultation bilaterally. No wheeze, rhonchi or rales. ABDOMEN: Soft, non tender on exam. No guarding or rebound. Nondistended. EXTREMITIES: No edema, pulses are equal bilaterally. NEUROLOGY: Mood, patient appears to be somewhat dramatic and affect appears heightened. Cranial nerves II through XII grossly intact. A/P Problem List: (1) Small bowel obstruction ICD Code: K56.609 - Unspecified intestinal obstruction, unspecified as to partial versus complete obstruction Status: Acute Assessment and Plan Small bowel obstruction with abrupt set of abdominal pain CT scan does indicate distal small bowel obstruction from congenital malrotation Follow-up KUB indicates normal examination with significant stool throughout the colon Small bowel follow throw shows mild dilatation of small bowel without obstruction to flow of gastrografin, mild ileus noted. General surgery following. no surgical intervention recommended. Continue pain control and now started po pain meds, try to wean LEAD CAREGIVER today. Pt counseled to stop using LEAD CAREGIVER and take pills Diet has been advanced to a regular diet. Chronic transaminitis with history of hepatitis C Enzymes appear to be stable as compared to previous admissions Hyperglycemia Previous hemoglobin A1c 5.9 in June hemoglobin A1c 6.0 DVT prevention Sequential compression devices, avoid chemical prophylaxis secondary to possible surgery. Pt has been ambulatory Discharge Planning Still requiring LEAD CAREGIVER. encouraged pt to take PO pain meds and wean LEAD CAREGIVER. No surgical intervention planned, pt is much improved clinically awaiting final recs from Adwoa Galvan MD Jan 07, 2017 10:25
[2017-01-07 12:00] VITALS: BP 111/76; PULSE 84; RESP 17; TEMP 97; O2SAT 97
--- NOTE | 2017-01-07 14:25 | HHI.PR ---
Subjective Subjective Notes feels better, still some pain Objective Vitals/I&O Vital Signs Date Time Temp Pulse Resp B/P (MAP) Pulse Ox O2 Delivery O2 Flow Rate FiO2 01/07/17 12:00 97.0 84 17 111/76 (88) 97 01/04/17 03:52 Room Air Radiology Last 48 hours Impressions Abdomen/Pelvis CT 01/04/17 0202 Signed Impressions: Service Date/Time: Wednesday, January 04, 2017 02:40 - CONCLUSION: 1. Distal small bowel obstruction. There is congenital malrotation but does not appear to be acutely contributory. I don't see a mass. Obstruction presumably related to adhesion. 2. Enlarged liver. Morris Friend MD Abdomen X-Ray 01/04/17 0000 Signed Impressions: Service Date/Time: Wednesday, January 04, 2017 07:53 - CONCLUSION: Normal examination. Significant stool throughout the colon. Raymond Murphy MD Abdomen: Non-distended, BS normal A/P Assessment and Plan 41yo female with adhesive SBO, resolving. ok for regular diet BMs on chart, but none today, no NV if pain improves and pt tolerates diet can DC home next 24h from surgery standpoint Howard Peters MD Jan 07, 2017 14:25
[2017-01-07 16:00] VITALS: BP 132/80; PULSE 103; RESP 19; TEMP 96.5; O2SAT 95
[2017-01-07] MEDS: SODIUM CHLOR 0.9% 1000 ML INJ 1,000 ML IV SCH (19:27)
[2017-01-07 20:00] VITALS: BP 145/77; PULSE 83; RESP 21; TEMP 97.3; O2SAT 96
[2017-01-07] MEDS ORDERED: traZODone HCL 100 MG TAB PO ONE (22:30)
[2017-01-08] VITALS: BP 119/76; PULSE 71; RESP 21; TEMP 98; O2SAT 98
[2017-01-08 08:00] VITALS: BP 101/52; PULSE 84; RESP 15; TEMP 98.4; O2SAT 96
[2017-01-08] MEDS: DOCUSATE SODIUM 50 MG/SENNA 8.6 MG TAB PO SCH ×2 (09:16→20:57)
[2017-01-08] MEDS: SODIUM CHLORIDE 0.9% FLUSH 10 ML FLUSH IV FLUSH SCH ×2 (09:16→20:58)
[2017-01-08] MEDS: oxyCODONE/ACETAMINOPHEN 5 MG/325 MG TAB PO PRN ×4 (09:17→23:18)
[2017-01-08 12:00] VITALS: BP 116/76; PULSE 86; RESP 16; TEMP 97.8; O2SAT 98
[2017-01-08] MEDS: SODIUM CHLOR 0.9% 1000 ML INJ 1,000 ML IV SCH (13:54)
--- NOTE | 2017-01-08 14:08 | HHI.PR ---
Subjective Remarks Pt seen around noon. Told me that covering surgeon would like her to wait another day for Dr. Kimball to determine if she will need sx. when I saw her, her pain was a 5/10 but at times shoots up to 7/10. Has been ambulating and tolerating a diet. Pain mainly in the right side Objective Vitals Vital Signs Date Time Temp Pulse Resp B/P (MAP) Pulse Ox O2 Delivery O2 Flow Rate FiO2 01/08/17 12:00 97.8 86 16 116/76 (89) 98 01/08/17 08:00 98.4 84 15 101/52 (68) 96 01/08/17 00:00 98.0 71 21 119/76 (90) 98 01/07/17 21:07 18 01/07/17 20:00 97.3 83 21 145/77 (99) 96 01/07/17 16:00 96.5 103 19 132/80 (97) 95 I/O 01/07/17 01/07/17 01/07/17 01/08/17 01/08/17 01/08/17 06:59 14:59 22:59 06:59 14:59 22:59 Intake Total 954 ml 3486 ml 240 ml Balance 954 ml 3486 ml 240 ml Intake Oral 240 ml 3200 ml 240 ml IV Total 714 ml 286 ml # Voids 2 11 2 # Bowel Movements 1 Result Diagram: 01/06/17 0542 01/06/17 0542 Imaging Last Impressions Small Bowel X-Ray 01/05/17 0600 Signed Impressions: Service Date/Time: December 13:20 - CONCLUSION: 1. Mild dilatation of small bowel without obstruction to flow of Gastrografin. Mild ileus present. Joseph Camejo MD Abdomen/Pelvis CT 01/04/17 0202 Signed Impressions: Service Date/Time: Wednesday, January 04, 2017 02:40 - CONCLUSION: 1. Distal small bowel obstruction. There is congenital malrotation but does not appear to be acutely contributory. I don't see a mass. Obstruction presumably related to adhesion. 2. Enlarged liver. Morris Friend MD Abdomen X-Ray 01/04/17 0000 Signed Impressions: Service Date/Time: Wednesday, January 04, 2017 07:53 - CONCLUSION: Normal examination. Significant stool throughout the colon. Raymond Murphy MD Objective Remarks GENERAL: noted to be ambulating down the halls w no difficulties. Eyes: Extraocular muscles are intact. NECK: Trachea midline no deviation. CARDIAC: Regular rhythm, regular rate. LUNGS: Clear to auscultation bilaterally. No wheeze, rhonchi or rales. ABDOMEN: Soft, somewhat tender in the mid/right area on exam. No guarding or rebound. Nondistended. EXTREMITIES: No edema, pulses are equal bilaterally. NEUROLOGY: Mood, patient appears to be somewhat dramatic and affect appears heightened. A/P Problem List: (1) Small bowel obstruction ICD Code: K56.609 - Unspecified intestinal obstruction, unspecified as to partial versus complete obstruction Status: Acute Assessment and Plan Small bowel obstruction with abrupt set of abdominal pain CT scan does indicate distal small bowel obstruction from congenital malrotation Follow-up KUB indicates normal examination with significant stool throughout the colon Small bowel follow throw shows mild dilatation of small bowel without obstruction to flow of gastrografin, mild ileus noted. General surgery following. no surgical intervention recommended. Continue pain control w po pain meds, off [employer]. on a regular diet. Chronic transaminitis with history of hepatitis C Enzymes appear to be stable as compared to previous admissions Hyperglycemia Previous hemoglobin A1c 5.9 in June hemoglobin A1c 6.0 DVT prevention Sequential compression devices, avoid chemical prophylaxis secondary to possible surgery. Pt has been ambulatory Discharge Planning No surgical intervention planned, however pt still having some pain. awaiting final recs from sx. Per pt, she was told by Dr. Hurd today that plan was to monitor overnight and Dr. Kimball will determine final recs in AM. Adwoa Murguia MD Jan 08, 2017 14:07
--- NOTE | 2017-01-08 14:56 | HHI.PR ---
cc: Jey Hurd MD Subjective Subjective Notes Some pain R side of abdomen inferiorly and across midline Tolerating diet with loose BM's Objective Vitals/I&O Vital Signs Date Time Temp Pulse Resp B/P (MAP) Pulse Ox O2 Delivery O2 Flow Rate FiO2 01/08/17 12:00 97.8 86 16 116/76 (89) 98 Radiology Last 48 hours Impressions Abdomen/Pelvis CT 01/04/17 0202 Signed Impressions: Service Date/Time: Wednesday, January 04, 2017 02:40 - CONCLUSION: 1. Distal small bowel obstruction. There is congenital malrotation but does not appear to be acutely contributory. I don't see a mass. Obstruction presumably related to adhesion. 2. Enlarged liver. Morris Friend MD Abdomen X-Ray 01/04/17 0000 Signed Impressions: Service Date/Time: Wednesday, January 04, 2017 07:53 - CONCLUSION: Normal examination. Significant stool throughout the colon. Raymond Murphy MD Abdomen: Non-distended, Other (Right lower abdominal tenderness extending across midline with some guarding) A/P Problem List: (1) Small bowel obstruction ICD Codes: K56.609 - Unspecified intestinal obstruction, unspecified as to partial versus complete obstruction Status: Acute (2) Intractable abdominal pain ICD Codes: R10.9 - Unspecified abdominal pain Status: Acute Assessment and Plan Assessment: Partial SBO, resolving/improving Plan: Continue nonoperative management Likely discharge next day or so. Jey Hurd MD Jan 08, 2017 14:56
[2017-01-08 16:00] VITALS: BP 109/73; PULSE 88; RESP 17; TEMP 97.5; O2SAT 97
[2017-01-08 20:00] VITALS: BP 111/73; PULSE 79; RESP 18; TEMP 97.7; O2SAT 97
[2017-01-08] MEDS ORDERED: traZODone HCL 100 MG TAB PO ONE (21:30)
[2017-01-09] VITALS: BP 102/55; PULSE 80; RESP 18; TEMP 96.7; O2SAT 95
[2017-01-09 08:00] VITALS: BP 103/55; PULSE 73; RESP 16; TEMP 97.4; O2SAT 98
[2017-01-09] MEDS: DOCUSATE SODIUM 50 MG/SENNA 8.6 MG TAB PO SCH ×2 (08:49→21:00)
[2017-01-09] MEDS: SODIUM CHLORIDE 0.9% FLUSH 10 ML FLUSH IV FLUSH SCH ×2 (08:50→22:01)
--- NOTE | 2017-01-09 11:30 | HHI.PR ---
Subjective Remarks +abd pain4/10 + tenderness to palpation afebrile Objective Vitals Vital Signs Date Time Temp Pulse Resp B/P (MAP) Pulse Ox O2 Delivery O2 Flow Rate FiO2 01/09/17 08:00 97.4 73 16 103/55 (71) 98 01/09/17 01:23 18 01/09/17 00:00 96.7 80 18 102/55 (71) 95 01/08/17 20:00 97.7 79 18 111/73 (86) 97 01/08/17 16:00 97.5 88 17 109/73 (85) 97 01/08/17 12:00 97.8 86 16 116/76 (89) 98 I/O 01/08/17 01/08/17 01/08/17 01/09/17 01/09/17 01/09/17 07:00 15:00 23:00 07:00 15:00 23:00 Intake Total 240 ml 240 ml 240 ml Balance 240 ml 240 ml 240 ml Intake Oral 240 ml 240 ml 240 ml # Voids 2 5 2 # Bowel Movements 0 Result Diagram: 01/06/17 0542 01/06/17 0542 Objective Remarks GENERAL: This is a well-nourished, well-developed patient, in no apparent distress. CARDIOVASCULAR: Regular rate and rhythm without murmurs, gallops, or rubs. RESPIRATORY: Clear to auscultation. Breath sounds equal bilaterally. No wheezes , rales, or rhonchi. GASTROINTESTINAL: Abdomen soft, tender to palpation, nondistended. Normal active bowel sounds MUSCULOSKELETAL: Extremities without clubbing, cyanosis, or edema. NEURO: Alert & Oriented x4 to person, place, time, situation. Moves all ext x4 A/P Problem List: (1) Small bowel obstruction ICD Code: K56.609 - Unspecified intestinal obstruction, unspecified as to partial versus complete obstruction Status: Acute Assessment and Plan Small bowel obstruction with abrupt set of abdominal pain CT scan does indicate distal small bowel obstruction from congenital malrotation Follow-up KUB indicates normal examination with significant stool throughout the colon Small bowel follow throw shows mild dilatation of small bowel without obstruction to flow of gastrografin, mild ileus noted. General surgery following. no surgical intervention recommended. Continue pain control w po pain meds, off CONSULTING SME. further recs per sx Chronic transaminitis with history of hepatitis C Enzymes appear to be stable as compared to previous admissions Hyperglycemia Previous hemoglobin A1c 5.9 in June hemoglobin A1c 6.0 DVT prevention Sequential compression devices, avoid chemical prophylaxis secondary to possible surgery. Pt has been ambulatory Rona Bryan MD Jan 09, 2017 11:30
[2017-01-09 12:00] VITALS: BP 112/68; PULSE 101; RESP 16; TEMP 96.4; O2SAT 94
[2017-01-09] MEDS: oxyCODONE/ACETAMINOPHEN 5 MG/325 MG TAB PO PRN (12:49)
--- NOTE | 2017-01-09 14:26 | HHI.PR ---
cc: Jayro Kimball MD Subjective Subjective Notes Resting in bed No issues Still with mild pain in RLQ Tolerating regular diet Objective Vitals/I&O Vital Signs Date Time Temp Pulse Resp B/P (MAP) Pulse Ox O2 Delivery O2 Flow Rate FiO2 01/09/17 12:00 96.4 101 16 112/68 (83) 94 Radiology Last 48 hours Impressions Abdomen/Pelvis CT 01/04/17 0202 Signed Impressions: Service Date/Time: Wednesday, January 04, 2017 02:40 - CONCLUSION: 1. Distal small bowel obstruction. There is congenital malrotation but does not appear to be acutely contributory. I don't see a mass. Obstruction presumably related to adhesion. 2. Enlarged liver. Morris Friend MD Abdomen X-Ray 01/04/17 0000 Signed Impressions: Service Date/Time: Wednesday, January 04, 2017 07:53 - CONCLUSION: Normal examination. Significant stool throughout the colon. Raymond Murphy MD Cardiovascular: Regular Lungs: Clear Abdomen: Non-distended, Other (minimal tenderness in RLQ ) Extremities: No edema A/P Problem List: (1) Small bowel obstruction ICD Codes: K56.609 - Unspecified intestinal obstruction, unspecified as to partial versus complete obstruction Status: Acute (2) Intractable abdominal pain ICD Codes: R10.9 - Unspecified abdominal pain Status: Acute Assessment and Plan 41 year old female with history of multiple abdominal surgeries; abdominal pain ; SBO on CT abd/pelvis -+BM -Tolerating regular diet -No acute GS issues -GS clear for DC -Follow up with Stehpanie Daugherty Jan 09, 2017 14:26
[2017-01-09 16:00] VITALS: BP 114/73; PULSE 92; RESP 17; TEMP 96.4; O2SAT 96
[2017-01-09 20:00] VITALS: BP 119/66; PULSE 80; RESP 20; TEMP 97.8; O2SAT 97
[2017-01-10] VITALS: BP 109/73; PULSE 94; RESP 20; TEMP 97.9; O2SAT 97
[2017-01-10 04:00] VITALS: BP 104/60; PULSE 77; RESP 20; TEMP 97; O2SAT 96
[2017-01-10 08:00] VITALS: BP 110/69; PULSE 70; RESP 16; TEMP 97.1; O2SAT 97
[2017-01-10] MEDS: DOCUSATE SODIUM 50 MG/SENNA 8.6 MG TAB PO SCH (09:12)
[2017-01-10] MEDS: oxyCODONE/ACETAMINOPHEN 5 MG/325 MG TAB PO PRN (09:12)
[2017-01-10] MEDS: SODIUM CHLORIDE 0.9% FLUSH 10 ML FLUSH IV FLUSH SCH (09:13)
[2017-01-10] MEDS ORDERED: SUCRALFATE 1 GM/10 ML CUP PO ONE (10:45)
[2017-01-10 12:00] VITALS: BP 105/62; PULSE 74; RESP 16; TEMP 97; O2SAT 97
--- NOTE | 2017-01-10 15:21 | RADRPT ---
EXAM DATE/TIME: 01/10/2017 14:32 [facility] COMPARISON: ABDOMEN KUB ONLY, July 09, 2016, 9:29. INDICATIONS : Abdominal pain in right upper quadrant. MEDICAL HISTORY : Gastroesophageal reflux disease. Hepatitis C. Chronic obstructive pulmonary disease. SURGICAL HISTORY : Cholecystectomy. section. Liver valve repair as a child. Multiple bowel reconstructio n. ENCOUNTER: Subsequent ACUITY: 4 - 6 days PAIN SCORE: 5/10 LOCATION: abdomen FINDINGS: Supine view of the abdomen was performed. The abdominal bowel gas pattern is normal. No abnormal ma sses, calcifications, or organomegaly is seen. The osseous structures are unremarkable. IUD device p rojects over the mid pelvis. CONCLUSION: 1. Nonobstructive bowel gas pattern without pneumoperitoneum. 2. IUD device projects over the mid pelvis Clem Valentin MD on January 10, 2017 at 15:18 Board Certified Radiologist. This report was verified electronically.
[2017-01-10] MEDS ORDERED: OXYC1TAB63 PO (15:25)
[2017-01-10] MEDS ORDERED: SUCR1S PO (15:25)
--- NOTE | 2017-01-10 15:30 | HHI.DS ---
Discharge Summary Admission Date Jan 05, 2017 at 11:51 Discharge Date: Jan 10, 2017 Admitting Diagnosis small bowel obstruction, intractable abdominal pain (1) Small bowel obstruction ICD Code: K56.609 - Unspecified intestinal obstruction, unspecified as to partial versus complete obstruction Status: Acute Procedures Small Bowel Follow-through series Brief History - From Admission Written by Silverio Forrester, acting as scribe for Dr. Sharma on 01/04/17 at 11 :11. 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 Patient states that she is in normal state of health until 8:30 last night when she developed sudden onset of 10/10 pain in her mid abdomen and progressively consumed her whole abdomen. Patient states that she tolerated the pain for approximately 4 hours and she had come to the hospital because the pain was relentless. She indicates that the pain medication that she was given did not do much for her pain. She had workup done which did indicate a distal small bowel obstruction likely from adhesions. Patient indicates that she has had this pain in the past. Patient has documented history of recurrent evaluations for abdominal pain, the most recent was June of this year. Patient indicates that her last bowel movement was yesterday. She has regular bowel movements daily. Denies any constipation or diarrhea. Denies any melena or hematochezia. Patient states that she ate clam chowder yesterday for dinner. She did have nausea and vomiting in the emergency department. Denies any fever , chills, chest pain, shortness of breath, dyspnea. CBC/BMP: 01/06/17 0542 01/06/17 0542 PE at Discharge GENERAL: This is a well-nourished, well-developed patient, in no apparent distress. CARDIOVASCULAR: Regular rate and rhythm without murmurs, gallops, or rubs. RESPIRATORY: Clear to auscultation. Breath sounds equal bilaterally. No wheezes , rales, or rhonchi. GASTROINTESTINAL: Abdomen soft, tender to palpation, nondistended. Normal active bowel sounds MUSCULOSKELETAL: Extremities without clubbing, cyanosis, or edema. NEURO: Alert & Oriented x4 to person, place, time, situation. Moves all ext x4 Hospital Course Mrs. Marc is a 41 year old female. She was admitted with a bowel obstruction. She has a history of gastroschisis as an which was surgically repaired. This may be contributory to some of her recurrent gastric pain symptoms. A hiatal hernia is present. Propensity of SBO and partial SBO may be present. Her bowel obstruction resolved spontaneously. Full transit of contrast seen on small bowel follow through series. Pain is still present, but a KUB shows no evidence of further bowel obstruction. Cleared by surgery for discharge. Medically clear for discharge home today with pain treatment and Carafate. Pt Condition on Discharge: Stable Discharge Disposition: Discharge Home Discharge Time: <= 30 minutes Discharge Instructions DIET: Follow Instructions for: As Tolerated, No Restrictions Additional Diet Instructions: Intake of meals and liquids should be clustered together with breaks inbetween; when stomach/abdominal pain present. Limit oral intake of solids and liquids at 2 hours before bedtime. Limit pepermint and spicy foods for symptomatic reflux exacerbations Activities you can perform: Regular-No Restrictions Follow up Referrals: Surgical with Jayro Kimball MD as needed New Medications: Oxycodone HCl/Acetaminophen (Oxycodone-Acetaminophen 5-325) 5 Mg-325 Mg Tablet 1 TAB PO Q6H PRN for Pain, #20 TAB Sucralfate Liq (Sucralfate Liq) 1 Gram/10 Ml Evon 1 GM PO ACHS PRN for Gastric Pain/Irritation, #200 ML 1 Refill Continued Medications: Escitalopram (Lexapro) 10 Mg Tab 10 MG PO DAILY, #30 TAB 0 Refills Lorazepam (Lorazepam) 0.5 Mg Tab 0.5 MG PO TID PRN for ANXIETY, TAB 0 Refills Trazodone (Trazodone) 100 Mg Tablet 100 MG PO HS for Control Depression, #30 TAB 0 Refills Cj Howard MD Jan 10, 2017 15:30
[2017-01-10] MEDS ORDERED: SUCRALFATE 1 GM/10 ML CUP PO SCH (17:00)
== END 2017-01-10 16:17 | disposition home or self-care (01) | DRG 390 ==
LOC: PHED 01:05 → PHEDA 03:50 → PH3B 04:46 → N07B 14:25 → OBSVTOIN 01-05 11:51
PROVIDERS: ADMIT Hospitalist; ATTEND Hospitalist
DX: K56.50 Intestinal adhesions [bands], unspecified as to partial versus complete obstruction (principal); J44.9 Chronic obstructive pulmonary disease, unspecified; B19.20 Unspecified viral hepatitis C without hepatic coma; R74.0 Nonspecific elevation of levels of transaminase and lactic acid dehydrogenase [LDH]; R73.9 Hyperglycemia, unspecified; G89.29 Other chronic pain; K44.9 Diaphragmatic hernia without obstruction or gangrene; F17.210 Nicotine dependence, cigarettes, uncomplicated; Z87.738 Personal history of other specified (corrected) congenital malformations of digestive system; F41.8 Other specified anxiety disorders; K21.9 Gastro-esophageal reflux disease without esophagitis
CPT/HCPCS: 74000; 74020; 74177; 74250; 76937; 80048; 80053; 81001; 82150; 82948; 83036; 83690; 84702; 85025; 96361; 96374; 96375; 96376; J1170; G0378; J2270; J2405; J2550; J7030; Q9963; Q9967